=== PATIENT | male | born 1970 | race Caucasian/White ===

== ENCOUNTER → 2017-08-08 08:47 | Outpatient (CLI) | payer OTHER, SELFPAY ==
--- NOTE | 2017-08-08 08:50 | CT_ITS ---
STUDY: CT CHEST WITH CONTRAST REASON FOR EXAM: Male, 47 years old. Lung nodule follow-up RADIATION DOSAGE (If Supplied By Facility): CTDIvol = ( 16.75 ) mGy, DLP = ( 917.30 ) mGycm TECHNIQUE: Transaxial imaging was performed following intravenous administration of 100 ml of Isovue 300 contrast material. Multiplanar coronal and sagittal images were reformatted. Individualized dose optimization techniques were used for this CT. COMPARISON: 11/22/2009, 06/06/2009 CT scan chest FINDINGS: And the left upper lobe there is a well-circumscribed pulmonary nodule measuring 5.7 mm which is slightly smaller than prior study June 06, 2009. Is no evidence of focal consolidation pleural effusion pulmonary edema or pneumothorax. There is no evidence of emphysematous change. There is no demonstrated pleural abnormality. Normal heart and pericardium. There is a trace amount of residual thymic tissue lesser than prior study. There is a trace amount of fluid in the pericardial recess. Stable Normal hilar regions. Normal enhanced pulmonary arteries. Normal aorta arch and descending thoracic aorta. There are multi-level degenerative changes of the thoracic spine. The liver is homogeneous and low attenuating compatible with hepatic steatosis. There is a small hiatal hernia stable since prior study dating back to May 07, 2009. CT/Chest WITH Contrast IMPRESSION: There is a stable well-circumscribed noncalcified nodule in the left upper lobe that is slightly smaller than prior study 06/06/2009. Given the lack of interval change management administrator time this is thought to be a benign nodule. Small hiatal hernia Hepatic steatosis. Electronically Signed: Teresa Coombs MD at 10:00 EST Tel , Service support ,
[2017-08-08 09:07] LABS: CREATININE FINGERSTICK 0.7 mg/dL (0.70-1.30); EGFR FINGERSTICK > 60.0000 mL/min (>60)
== END ==
PROVIDERS: Family Provider Internal Medicine; PCP Internal Medicine; Visit Provider Internal Medicine
DX: R91.1 Solitary pulmonary nodule (principal)
CPT/HCPCS: 71260; Q9967

== ENCOUNTER → 2018-05-17 07:13 | Outpatient (CLI) | payer OTHER, SELFPAY ==
[2018-05-17 07:19] LABS: Bacteria 0 SEEN /hpf (None Seen); Mucous, Urine 0 SEEN /hpf (<or=2+); Red Blood Cells-Urine 0 SEEN /hpf (0-5); White Blood Cells 0 SEEN /hpf (0-5)
[2018-05-17 10:05] LABS: Color, Urine Yellow (Yellow); Glucose, Dipstick 1000 mg/dl (Normal); Ketone-Dipstick Negative (Negative); Leukocyte Esterase-Dipstick Negative /ul (Negative); Nitrite-Dipstick Negative (Negative); Occult Blood-Urine Negative /ul (Negative); Protein-Dipstick Negative (Negative); Specific Gravity, Urine 1.025 (1.002-1.030); Urine Bilirubin Dipstick Negative (Negative); Urine Clarity Clear (Clear); Urine Urobilinogen Normal (Normal)
[2018-05-17 10:09] LABS: Squamous Epithelial Cells - UA 0-5 SEEN /hpf (0-5)
[2018-05-17 10:10] LABS: Calcium Oxalate Crystals Ur RARE /hpf (<or=2+)
[2018-05-17 10:18] LABS: Absolute Lymphocyte Count 2.06 X10^3/ul (0.83-4.51); Absolute Neutrophil Count 5.4 X10^3/uL (2.0-7.7); Basophil# 0.03 X10^3/uL; Basophil% 0.4 % (0-1); Eosinophils% 2.4 % (0-5); Hematocrit 48.4 % (40-54); Hemoglobin 15.8 g/dl (13.0-16.5); Lymphocyte # 2.06 X10^3/ul (4.0); Lymphocyte % 24.6 % (19-41); Mean Corp Hgb Conc 32.6 g/gl (32-36); Mean Corpuscular Hgb 28.1 pg (27.0-32.0); Mean Platelet Vol. 10.2 fl (6.2-12.0); Monocyte# 0.62 X10^3/uL; Monocyte% 7.4 % (0-10); Neutrophil # 5.42 X10^3/uL (2.7-7.7); Neutrophil % 64.8 % (47-70); Platelet Count 205 K/mm3 (150-450); RBC Distribution Width CV 13.3 % (11.6-14.6); RBC Distribution Width SD 41.8 fl (35.1-43.9); Red Blood Count 5.63 M/mm3 (4.6-6.2); White Blood Count 8.4 K/mm3 (4.4-11.0)
[2018-05-17 10:19] LABS: POSITIVE COUNT NO; POSITIVE DIFFERENTIAL NO; POSITIVE MORPHOLOGY NO
[2018-05-17 10:27] LABS: Microalbumin,Random Urine 14.4 mg/L (NO RANGE EST.); Microalbumin:Creatinine Ratio 6.2 mg/g CRE (<30 mg/g CRE)
[2018-05-17 10:44] LABS: ALB/GLOB Ratio 1.1 RATIO (0.9-2.4); AST(SGOT) 20 U/L (15-37); Alanine Aminotransfer ALT/SGPT 46 U/L (16-61); Albumin, Serum 3.9 g/dL (3.2-5.0); Alkaline Phosphatase 64 U/L (45-117); Anion Gap 8 (5-15); BUN 17 mg/dL (7-18); Calcium,Total 9.4 mg/dL (8.5-10.1); Chloride 101 mmol/L (98-107); EST Glomerular Filtration Rate 97 mL/min (>60); Est Glom Filt Rate - Afr Amer 117 mL/min (>60); Globulin 3.7 g/dL (2.2-4.2); Glucose 124 mg/dL (74-106); Potassium 3.9 mmol/L (3.5-5.1); Protein, Total 7.6 g/dL (6.4-8.2); Sodium Level 141 mmol/L (136-145); Thyroid Stim Hormone (TSH) 2.86 uIU/mL (0.358-3.74)
[2018-05-19 16:09] LABS: CHOLESTEROL TOTAL 136 mg/dL (100-199); HDL-C 32 mg/dL (>39); HDL-P TOTAL 27.2 umol/L (>=30.5); SMALL LDL-P 859 nmol/L (<=527); TRIGLYCERIDES 170 mg/dL (0-149)
[2018-05-20 07:35] LABS: LDL-C 70 mg/dL (0-99); LDL-P 1227 nmol/L (<1000); LP-IR SCORE ** 75 (<=45)
== END ==
PROVIDERS: Family Provider Internal Medicine; PCP Internal Medicine; Referring Provider Internal Medicine; Visit Provider Internal Medicine
DX: E55.9 Vitamin D deficiency, unspecified (principal); E11.9 Type 2 diabetes mellitus without complications
CPT/HCPCS: 36415; 80053; 80061; 81001; 82043; 82306; 82570; 83704; 84443; 85025

== ENCOUNTER → 2018-12-07 | Outpatient (CLI) | payer OTHER, SELFPAY ==
[2018-12-07 10:43] LABS: Absolute Lymphocyte Count 1.48 X10^3/ul (0.83-4.51); Absolute Neutrophil Count 5.4 X10^3/uL (2.0-7.7); Basophil# 0.02 X10^3/uL; Basophil% 0.3 % (0-1); Eosinophil# 0.15 X10^3/uL; Eosinophils% 1.9 % (0-5); Hematocrit 45.1 % (40-54); Lymphocyte # 1.48 X10^3/ul (4.0); Lymphocyte % 19.1 % (19-41); Mean Corp Hgb Conc 33.3 g/gl (32-36); Mean Corpuscular Hgb 28.3 pg (27.0-32.0); Mean Corpuscular Volume 85.1 fL (80-94); Mean Platelet Vol. 10.2 fl (6.2-12.0); Monocyte# 0.68 X10^3/uL; Monocyte% 8.8 % (0-10); Neutrophil # 5.37 X10^3/uL (2.7-7.7); Neutrophil % 69.3 % (47-70); Platelet Count 201 K/mm3 (150-450); RBC Distribution Width CV 13.6 % (11.6-14.6); RBC Distribution Width SD 41.6 fl (35.1-43.9); White Blood Count 7.8 K/mm3 (4.4-11.0)
[2018-12-07 10:44] LABS: POSITIVE COUNT NO; POSITIVE DIFFERENTIAL NO; POSITIVE MORPHOLOGY NO
[2018-12-07 10:45] LABS: Vitamin D,25 Hydroxy 26.3 ng/mL (29.95-100.01)
[2018-12-07 10:52] LABS: Microalbumin,Random Urine 11.8 mg/L (NO RANGE EST.); Microalbumin:Creatinine Ratio 6.2 mg/g CRE (<30 mg/g CRE)
[2018-12-07 10:56] LABS: ALB/GLOB Ratio 1.1 RATIO (0.9-2.4); AST(SGOT) 17 U/L (15-37); Alanine Aminotransfer ALT/SGPT 33 U/L (16-61); Albumin, Serum 3.8 g/dL (3.2-5.0); Alkaline Phosphatase 70 U/L (45-117); Anion Gap 9 (5-15); BUN 17 mg/dL (7-18); Calcium,Total 9.1 mg/dL (8.5-10.1); Chloride 102 mmol/L (98-107); Creatinine, Serum 0.85 mg/dL (0.70-1.30); EST Glomerular Filtration Rate 103 mL/min (>60); Est Glom Filt Rate - Afr Amer 124 mL/min (>60); Globulin 3.5 g/dL (2.2-4.2); Glucose 121 mg/dL (74-106); Potassium 3.9 mmol/L (3.5-5.1); Protein, Total 7.3 g/dL (6.4-8.2); Sodium Level 142 mmol/L (136-145); Thyroid Stim Hormone (TSH) 2.47 uIU/mL (0.358-3.74)
[2018-12-08 14:06] LABS: CHOLESTEROL TOTAL 137 mg/dL (100-199); HDL-C 29 mg/dL (>39); HDL-P TOTAL 24.4 umol/L (>=30.5); SMALL LDL-P 1105 nmol/L (<=527); TRIGLYCERIDES 138 mg/dL (0-149)
[2018-12-10 16:55] LABS: INSULIN RESISTANCE SCORE 77 (<=45); LDL SIZE 19.7 nm (>20.5); LDL-C 80 mg/dL (0-99); LDL-P 1368 nmol/L (<1000)
== END | disposition home or self-care (01) ==
LOC: MTLAB 07:09
PROVIDERS: Family Provider Internal Medicine; PCP Internal Medicine; Referring Provider Internal Medicine; Visit Provider Internal Medicine
DX: E11.65 Type 2 diabetes mellitus with hyperglycemia (principal); E55.9 Vitamin D deficiency, unspecified
CPT/HCPCS: 36415; 80053; 80061; 82043; 82306; 82570; 83704; 84443; 85025

== ENCOUNTER → 2019-07-11 | Outpatient (CLI) | payer OTHER, SELFPAY ==
[2019-07-11 07:08] LABS: Bacteria 0 SEEN /hpf (None Seen); Mucous, Urine 0 SEEN /hpf (<or=2+); White Blood Cells 0 SEEN /hpf (0-5)
[2019-07-11 10:27] LABS: Color, Urine Yellow (Yellow); Glucose, Dipstick 1000 mg/dl (Normal); Ketone-Dipstick Negative (Negative); Leukocyte Esterase-Dipstick Negative /ul (Negative); Nitrite-Dipstick Negative (Negative); Occult Blood-Urine Negative /ul (Negative); Protein-Dipstick Negative (Negative); Specific Gravity, Urine 1.015 (1.002-1.030); Urine Bilirubin Dipstick Negative (Negative); Urine Clarity Sl. Cloudy (Clear); Urine Urobilinogen Normal (Normal)
[2019-07-11 10:28] LABS: Absolute Lymphocyte Count 1.67 X10^3/uL (0.83-4.51); Absolute Neutrophil Count 7.8 X10^3/uL (2.0-7.7); Basophil# 0.07 X10^3/uL; Basophil% 0.7 % (0-1); Eosinophil# 0.18 X10^3/uL; Eosinophils% 1.7 % (0-5); Hematocrit 49.2 % (40-54); Lymphocyte # 1.67 X10^3/ul (4.0); Lymphocyte % 15.9 % (19-41); Mean Corp Hgb Conc 32.5 g/dL (32-36); Mean Corpuscular Hgb 27.4 pg (27.0-32.0); Mean Corpuscular Volume 84.4 fL (80-94); Mean Platelet Vol. 9.9 fl (6.2-12.0); Monocyte# 0.72 X10^3/uL; Monocyte% 6.9 % (0-10); NRBC Flagged by Analyzer 0 % (0-5); Neutrophil # 7.76 X10^3/uL (2.7-7.7); Platelet Count 232 K/mm3 (150-450); RBC Distribution Width CV 13.5 % (11.6-14.6); RBC Distribution Width SD 41.1 fl (35.1-43.9); Red Blood Count 5.83 M/mm3 (4.6-6.2); White Blood Count 10.5 K/mm3 (4.4-11.0)
[2019-07-11 10:39] LABS: Red Blood Cells-Urine 0-5 SEEN /hpf (0-5); Squamous Epithelial Cells - UA 0-5 SEEN /hpf (0-5)
[2019-07-11 10:49] LABS: Vitamin D,25 Hydroxy 43.9 ng/mL (29.95-100.01)
[2019-07-11 10:54] LABS: AST(SGOT) 18 U/L (15-37); Alanine Aminotransfer ALT/SGPT 46 U/L (16-61); Albumin, Serum 3.8 g/dL (3.2-5.0); Alkaline Phosphatase 74 U/L (45-117); Anion Gap 4 (5-15); BUN 20 mg/dL (7-18); BUN/Creat Ratio 20.2 RATIO (10-20); Calcium,Total 9.5 mg/dL (8.5-10.1); Chloride 99 mmol/L (98-107); Creatinine, Serum 0.99 mg/dL (0.70-1.30); EST Glomerular Filtration Rate 86 mL/min (>60); Est Glom Filt Rate - Afr Amer 104 mL/min (>60); Globulin 3.7 g/dL (2.2-4.2); Glucose 200 mg/dL (74-106); Potassium 3.9 mmol/L (3.5-5.1); Protein, Total 7.5 g/dL (6.4-8.2); Sodium Level 136 mmol/L (136-145); Thyroid Stim Hormone (TSH) 2.62 uIU/mL (0.358-3.74)
[2019-07-12 16:07] LABS: CHOLESTEROL TOTAL 164 mg/dL (100-199); HDL-C 34 mg/dL (>39); SMALL LDL-P 1246 nmol/L (<=527); TRIGLYCERIDES 221 mg/dL (0-149)
[2019-07-13 14:03] LABS: INSULIN RESISTANCE SCORE 87 (<=45); LDL SIZE 19.8 nm (>20.5); LDL-C 86 mg/dL (0-99); LDL-P 1667 nmol/L (<1000)
== END | disposition home or self-care (01) ==
LOC: MTLAB 07:04
PROVIDERS: PCP Internal Medicine; Referring Provider Internal Medicine; Visit Provider Internal Medicine
DX: E55.9 Vitamin D deficiency, unspecified (principal); I10 Essential (primary) hypertension; E11.9 Type 2 diabetes mellitus without complications
CPT/HCPCS: 36415; 80053; 80061; 81001; 82043; 82306; 82570; 83704; 84443; 85025

== ENCOUNTER → 2020-01-30 | Outpatient (CLI) | payer OTHER, SELFPAY ==
[2020-01-30 07:13] LABS: Mucous, Urine 0 SEEN /hpf (<or=2+); Red Blood Cells-Urine 0 SEEN /hpf (0-5); White Blood Cells 0 SEEN /hpf (0-5)
[2020-01-30 09:49] LABS: Absolute Lymphocyte Count 1.77 X10^3/uL (0.83-4.51); Basophil# 0.05 X10^3/uL; Basophil% 0.6 % (0-1); Eosinophil# 0.18 X10^3/uL; Eosinophils% 2.3 % (0-5); Hematocrit 44.2 % (40-54); Hemoglobin 14.5 g/dL (13.0-16.5); Lymphocyte # 1.77 X10^3/ul (4.0); Lymphocyte % 22.7 % (19-41); Mean Corp Hgb Conc 32.8 g/dL (32-36); Mean Corpuscular Hgb 28.8 pg (27.0-32.0); Mean Corpuscular Volume 87.7 fL (80-94); Mean Platelet Vol. 10.2 fl (6.2-12.0); Monocyte# 0.74 X10^3/uL; Monocyte% 9.5 % (0-10); NRBC Flagged by Analyzer 0 % (0-5); Neutrophil % 64.1 % (47-70); Platelet Count 201 K/mm3 (150-450); RBC Distribution Width CV 13.7 % (11.6-14.6); RBC Distribution Width SD 42.2 fl (35.1-43.9); Red Blood Count 5.04 M/mm3 (4.6-6.2); White Blood Count 7.8 K/mm3 (4.4-11.0)
[2020-01-30 09:57] LABS: Color, Urine Yellow (Yellow); Glucose, Dipstick 250 mg/dl (Normal); Ketone-Dipstick Negative (Negative); Leukocyte Esterase-Dipstick Negative /ul (Negative); Nitrite-Dipstick Negative (Negative); Occult Blood-Urine Negative /ul (Negative); Protein-Dipstick 30 mg/dl (Negative); Urine Bilirubin Dipstick Negative (Negative); Urine Clarity Clear (Clear); Urine Urobilinogen Normal (Normal)
[2020-01-30 10:06] LABS: Bacteria 1+ /hpf (None Seen); Calcium Oxalate Crystals Ur 2+ /hpf (<or=2+)
[2020-01-30 10:07] LABS: Squamous Epithelial Cells - UA 0-5 SEEN /hpf (0-5)
[2020-01-30 10:23] LABS: ALB/GLOB Ratio 1.1 RATIO (0.9-2.4); AST(SGOT) 14 U/L (15-37); Alanine Aminotransfer ALT/SGPT 37 U/L (16-61); Albumin, Serum 3.7 g/dL (3.2-5.0); Alkaline Phosphatase 71 U/L (45-117); Anion Gap 4 (5-15); BUN 15 mg/dL (7-18); BUN/Creat Ratio 16.2 RATIO (10-20); Calcium,Total 9.4 mg/dL (8.5-10.1); Chloride 101 mmol/L (98-107); Cholesterol 133 mg/dL (200); Creatinine, Serum 0.93 mg/dL (0.70-1.30); EST Glomerular Filtration Rate 92 mL/min (>60); Est Glom Filt Rate - Afr Amer 111 mL/min (>60); Globulin 3.5 g/dL (2.2-4.2); Glucose 258 mg/dL (74-106); High Density Lipoprotein 33 mg/dL; Protein, Total 7.2 g/dL (6.4-8.2); Sodium Level 137 mmol/L (136-145); Thyroid Stim Hormone (TSH) 2.62 uIU/mL (0.358-3.74); Triglycerides 155 mg/dL; Very Low Density Lipoprotein 31 mg/dL (5-40)
[2020-01-30 10:32] LABS: Microalbumin,Random Urine 20.2 mg/L (NO RANGE EST.); Microalbumin:Creatinine Ratio 6.4 mg/g CRE (<30 mg/g CRE)
[2020-01-30 11:11] LABS: Vitamin D,25 Hydroxy 64.6 ng/mL
== END | disposition home or self-care (01) ==
LOC: MTLAB 07:06
PROVIDERS: PCP Internal Medicine; Referring Provider Internal Medicine; Visit Provider Internal Medicine
DX: E55.9 Vitamin D deficiency, unspecified (principal); E11.9 Type 2 diabetes mellitus without complications; R50.9 Fever, unspecified
CPT/HCPCS: 36415; 80053; 80061; 81001; 82043; 82306; 82570; 84443; 85025

== ENCOUNTER → 2020-08-06 07:06 | Outpatient (CLI) | payer OTHER, SELFPAY ==
[2020-08-06 07:13] LABS: Bacteria 0 SEEN /hpf (None Seen); Mucous, Urine 0 SEEN /hpf (<or=2+); Red Blood Cells-Urine 0 SEEN /hpf (0-5)
[2020-08-06 10:22] LABS: Absolute Lymphocyte Count 1.66 X10^3/uL (0.83-4.51); Absolute Neutrophil Count 5.3 X10^3/uL (2.0-7.7); Basophil# 0.05 X10^3/uL; Basophil% 0.6 % (0-1); Eosinophil# 0.14 X10^3/uL; Eosinophils% 1.8 % (0-5); Hematocrit 45.4 % (40-54); Hemoglobin 14.5 g/dL (13.0-16.5); Lymphocyte # 1.66 X10^3/ul (4.0); Lymphocyte % 21.1 % (19-41); Mean Corp Hgb Conc 31.9 g/dL (32-36); Mean Corpuscular Hgb 27.3 pg (27.0-32.0); Mean Corpuscular Volume 85.5 fL (80-94); Monocyte# 0.61 X10^3/uL; Monocyte% 7.7 % (0-10); NRBC Flagged by Analyzer 0 % (0-5); Neutrophil # 5.34 X10^3/uL (2.7-7.7); Neutrophil % 67.8 % (47-70); Platelet Count 221 K/mm3 (150-450); RBC Distribution Width CV 13.2 % (11.6-14.6); RBC Distribution Width SD 40.6 fl (35.1-43.9); Red Blood Count 5.31 M/mm3 (4.6-6.2); White Blood Count 7.9 K/mm3 (4.4-11.0)
[2020-08-06 10:31] LABS: Color, Urine Yellow (Yellow); Glucose, Dipstick 250 mg/dl (Normal); Ketone-Dipstick Negative (Negative); Leukocyte Esterase-Dipstick 25 /ul (Negative); Nitrite-Dipstick Negative (Negative); Occult Blood-Urine Negative /ul (Negative); Protein-Dipstick 30 mg/dl (Negative); Urine Bilirubin Dipstick Negative (Negative); Urine Clarity Sl. Cloudy (Clear); Urine Urobilinogen 1 mg/dl (Normal)
[2020-08-06 10:37] LABS: Squamous Epithelial Cells - UA 0-5 SEEN /hpf (0-5); White Blood Cells 0-5 SEEN /hpf (0-5)
[2020-08-06 10:46] LABS: Vitamin D,25 Hydroxy 52.8 ng/mL
[2020-08-06 10:52] LABS: AST(SGOT) 18 U/L (15-37); Alanine Aminotransfer ALT/SGPT 46 U/L (16-61); Albumin, Serum 3.6 g/dL (3.2-5.0); Alkaline Phosphatase 82 U/L (45-117); Anion Gap 7 (5-15); BUN 15 mg/dL (7-18); BUN/Creat Ratio 15.6 RATIO (10-20); Calcium,Total 9.3 mg/dL (8.5-10.1); Chloride 97 mmol/L (98-107); Creatinine, Serum 0.96 mg/dL (0.70-1.30); EST Glomerular Filtration Rate 88 mL/min (>60); Est Glom Filt Rate - Afr Amer 107 mL/min (>60); Globulin 3.5 g/dL (2.2-4.2); Glucose 267 mg/dL (74-106); Protein, Total 7.1 g/dL (6.4-8.2); Sodium Level 138 mmol/L (136-145); Thyroid Stim Hormone (TSH) 2.75 uIU/mL (0.358-3.74)
[2020-08-06 11:01] LABS: Microalbumin,Random Urine 25.8 mg/L (NO RANGE EST.); Microalbumin:Creatinine Ratio 9.3 mg/g CRE (<30 mg/g CRE)
[2020-08-08 20:08] LABS: CHOLESTEROL TOTAL 150 mg/dL (100-199); HDL-C 37 mg/dL (>39); HDL-P TOTAL 27.8 umol/L (>=30.5); SMALL LDL-P 837 nmol/L (<=527); TRIGLYCERIDES 164 mg/dL (0-149)
[2020-08-08 21:00] LABS: LDL-P 1300 nmol/L (<1000)
[2020-08-08 21:01] LABS: INSULIN RESISTANCE SCORE 73 (<=45); LDL SIZE 20.1 nm (>20.5); LDL-C (NIH CALC) 85 mg/dL (0-99)
== END ==
PROVIDERS: PCP Internal Medicine; Referring Provider Internal Medicine; Visit Provider Internal Medicine
DX: E55.9 Vitamin D deficiency, unspecified (principal); E78.5 Hyperlipidemia, unspecified; I10 Essential (primary) hypertension
CPT/HCPCS: 36415; 80053; 80061; 81001; 82043; 82306; 82570; 83704; 84443; 85025

== ENCOUNTER → 2020-12-31 07:10 | Outpatient (CLI) | payer OTHER, SELFPAY ==
[2020-12-31 07:24] LABS: Mucous, Urine 0 SEEN /hpf (<or=2+); Red Blood Cells-Urine 0 SEEN /hpf (0-5); White Blood Cells 0 SEEN /hpf (0-5)
[2020-12-31 10:42] LABS: Color, Urine Yellow (Yellow); Glucose, Dipstick Normal (Normal); Ketone-Dipstick Negative (Negative); Leukocyte Esterase-Dipstick Negative /ul (Negative); Nitrite-Dipstick Negative (Negative); Occult Blood-Urine Negative /ul (Negative); Protein-Dipstick 15 mg/dl (Negative); Specific Gravity, Urine 1.025 (1.002-1.030); Urine Bilirubin Dipstick Negative (Negative); Urine Clarity Sl. Cloudy (Clear); Urine Urobilinogen Normal (Normal)
[2020-12-31 10:43] LABS: Absolute Lymphocyte Count 1.54 X10^3/uL (0.83-4.51); Basophil# 0.04 X10^3/uL; Basophil% 0.6 % (0-1); Eosinophil# 0.12 X10^3/uL; Eosinophils% 1.9 % (0-5); Hematocrit 44.4 % (40-54); Lymphocyte # 1.54 X10^3/ul (0.83-4.51); Lymphocyte % 24.3 % (19-41); Mean Corp Hgb Conc 31.5 g/dL (32-36); Mean Corpuscular Hgb 27.5 pg (27.0-32.0); Mean Corpuscular Volume 87.2 fL (80-94); Mean Platelet Vol. 10.3 fl (6.2-12.0); Monocyte# 0.57 X10^3/uL; NRBC Flagged by Analyzer 0 % (0-5); Neutrophil # 4.02 X10^3/uL (2.7-7.7); Neutrophil % 63.3 % (47-70); Platelet Count 242 K/mm3 (150-450); RBC Distribution Width CV 13.2 % (11.6-14.6); RBC Distribution Width SD 42.4 fl (35.1-43.9); Red Blood Count 5.09 M/mm3 (4.6-6.2); White Blood Count 6.4 K/mm3 (4.4-11.0)
[2020-12-31 10:51] LABS: Bacteria 1+ /hpf (None Seen); Squamous Epithelial Cells - UA 0-5 SEEN /hpf (0-5)
[2020-12-31 10:52] LABS: Calcium Oxalate Crystals Ur 1+ /hpf (<or=2+)
[2020-12-31 10:57] LABS: Vitamin D,25 Hydroxy 56.8 ng/mL
[2020-12-31 11:00] LABS: Microalbumin,Random Urine 21.8 mg/L (NO RANGE EST.); Microalbumin:Creatinine Ratio 7.7 mg/g CRE (<30 mg/g CRE)
[2020-12-31 11:14] LABS: AST(SGOT) 20 U/L (15-37); Alanine Aminotransfer ALT/SGPT 47 U/L (16-61); Albumin, Serum 3.6 g/dL (3.2-5.0); Alkaline Phosphatase 66 U/L (45-117); Anion Gap 5 (5-15); BUN 13 mg/dL (7-18); BUN/Creat Ratio 16.1 RATIO (10-20); Calcium,Total 9.1 mg/dL (8.5-10.1); Chloride 103 mmol/L (98-107); Cholesterol 127 mg/dL (200); Creatinine, Serum 0.81 mg/dL (0.70-1.30); EST Glomerular Filtration Rate 108 mL/min (>60); Est Glom Filt Rate - Afr Amer 130 mL/min (>60); Globulin 3.5 g/dL (2.2-4.2); Glucose 205 mg/dL (74-106); High Density Lipoprotein 31 mg/dL; PSA,Total - Annual Screen 0.56 ng/mL (0.00-4.00); Potassium 4.3 mmol/L (3.5-5.1); Protein, Total 7.1 g/dL (6.4-8.2); Sodium Level 136 mmol/L (136-145); Thyroid Stim Hormone (TSH) 3.34 uIU/mL (0.358-3.74); Triglycerides 126 mg/dL; Very Low Density Lipoprotein 25 mg/dL (5-40)
== END ==
PROVIDERS: PCP Internal Medicine; Referring Provider Internal Medicine; Visit Provider Internal Medicine
DX: E55.9 Vitamin D deficiency, unspecified (principal); E11.9 Type 2 diabetes mellitus without complications; Z12.5 Encounter for screening for malignant neoplasm of prostate
CPT/HCPCS: 36415; 80053; 80061; 81001; 82043; 82306; 82570; 84153; 84443; 85025; G0103

== ENCOUNTER → 2021-01-18 06:41 | Outpatient (CLI) | payer OTHER, SELFPAY ==
--- NOTE | 2021-01-18 06:46 | ECHOD_ITS ---
Reason For Study: Abn. EKG Procedure This was a 2D Doppler, Color Flow transthoracic echocardiogram. The study was technically difficult. Contrast injection was performed. Exam performed in department. Left Ventricle Normal LV size. Left ventricular systolic function is normal. The estimated ejection fraction is 55 %. Transmitral doppler flow suggestive of impaired relaxation of left ventricle. No regional wall motion abnormalities noted. Right Ventricle Normal RV size. Normal systolic function. Atria Normal left atrium. Normal right atrium. No doppler evidence for ASD. Mitral Valve There is no mitral annular calcification. Normal mitral valve. Trivial mitral valve insufficiency. Tricuspid Valve Normal tricuspid valve. Trivial tricuspid valve insufficiency. Unable to estimate RV systolic pressure/pulmonary artery pressure due to technically difficult study. Aortic Valve Trisinus/trileaflet aortic valve. Mild focal aortic valve calcification. Pulmonic Valve The pulmonic valve is not well visualized. Great Vessels Normal sized aortic root. Pericardium/Pleural No pericardial effusion. Medication Diluted definity 1.5ml given slow IV push to enhance endocardial definition. MMode/2D Measurements & Calculations LVIDd: 4.7 cm IVSd: 1.1 cm Ao root diam: 3.5 cm LVIDs: 3.1 cm LVPWd: 0.94 cm RVDd: 3.4 cm FS: 33.8 % LAV(MOD-bp): 66.2 ml LVAd ap4: 38.4 cm2 LVAd ap2: 40.1 cm2 LAV(MOD-bp) Indexed: 23.9 ml/m2 LVLd ap4: 8.6 cm LVLd ap2: 9.0 cm LAV(MOD-sp2): 66.7 ml EDV(MOD-sp4): 135.6 ml EDV(MOD-sp2): 144.0 ml LAV(MOD-sp4): 62.6 ml EDV(sp4-el): 144.8 ml EDV(sp2-el): 151.5 ml LVAs ap4: 25.1 cm2 LVAs ap2: 22.9 cm2 LVLs ap4: 7.6 cm LVLs ap2: 7.8 cm ESV(MOD-sp4): 69.5 ml ESV(MOD-sp2): 55.2 ml ESV(sp4-el): 70.9 ml ESV(sp2-el): 57.2 ml EF(MOD-sp4): 48.8 % EF(MOD-sp2): 61.7 % EF(sp4-el): 51.1 % SV(MOD-sp4): 66.1 ml SV(MOD-sp2): 88.8 ml SV(sp4-el): 73.9 ml LA A4 area: 20.1 cm2 RA A4 area: 11.6 cm2 Doppler Measurements & Calculations MV E max adolph: 83.7 cm/sec Lat Peak E' Adolph: 8.7 cm/sec Med Peak E' Adolph: 5.9 cm/sec MV A max adolph: 108.4 cm/sec E/E' lat: 9.6 E/E' med: 14.1 MV E/A: 0.77 Ao V2 max: 128.8 cm/sec LV V1 max: 94.2 cm/sec PA V2 max: 79.5 cm/sec Ao max P.6 mmHg LV V1 max P.5 mmHg ECHO/Echo Complete W/ Contrast Interpretation Summary The study was technically difficult. Contrast injection was performed. Left ventricular systolic function is normal. The estimated ejection fraction is 55 %. Trivial mitral valve insufficiency. Trivial tricuspid valve insufficiency. Mild focal aortic valve calcification. Unable to estimate RV systolic pressure/pulmonary artery pressure due to techni trip difficult study. Transmitral doppler flow suggestive of impaired relaxation of left ventricle Ordering Physician: Beverley Cavazos Referring Physician: Beverley Cavazos Performed By: Snehal Savage RDCS
--- NOTE | 2021-01-18 21:36 | STRESSREP ---
Stress Test Report Date: 01-18-2021 Procedure: Pharmacologic stress nuclear imaging study Indications: Abnormal ECG Consent: Per the patient Procedure: The patient underwent pharmacologic (Regadenoson 0.4mg ) evaluation with a peak heart rate of 99 beats per minute (57%predicted maximal heart rate) and a peak blood pressure of 138/82 mmHg. The baseline ECG demonstrated sinus rhythm. The peak pharmacologic ECG demonstrated no obvious ECG changes. There were no cardiac dysrhythmias pretest, during pharmacologic infusion, or recovery. There was no complaint of chest discomfort during pharmacologic infusion or recovery. The examination was discontinued secondary to completion of protocol. Impression: 1. Pharmacologic (Regadenoson) evaluation 2. Peak pharmacologic ECG with no obvious ECG change. 3. There were no cardiac dysrhythmias pretest, during pharmacologic infusion, or recovery. 4. Nuclear images pending Myocardial perfusion imaging study: Technique: The patient was injected with 15.0 millicuries of technetium 99m Cardiolite and subsequently rest SPECT Cardiolite nuclear imaging was obtained in the horizontal long, vertical long, and short axis views. The patient underwent pharmacologic (Regadenoson) evaluation with a peak heart rate of 99 beats per minute (57% percent predicted maximal heart rate) and a peak blood pressure of 138/82 mmHg. The patient was injected with 45.0 millicuries of technetium 99m Cardiolite and subsequently stress SPECT Cardiolite nuclear imaging was obtained in the horizontal long, vertical long, and short axis views. A gated Cardiolite study at peak stress was obtained. Interpretation: Rest and stress SPECT Cardiolite nuclear imaging status post realignment, normalization, and attenuation correction demonstrate at rest the appearance of relative uniform tracer uptake and myocardial perfusion within normal limits. Status post stress there is an area of subtle diminished tracer uptake in the mid to distal anterior/anteroapical segments. There is end systolic thickening and brightening. The gated Cardiolite study demonstrates myocardial thickening and inward wall motion. The reported LVEF is 55%. Impression: 1. Rest and stress SPECT her nuclear imaging demonstrate myocardial perfusion changes potentially compatible with an area of stress-induced myocardial ischemia involving portions of the mid to distal anterior/anteroapical segments, although, an element of shifting soft tissue attenuation/artifact cannot necessarily be excluded.. 2. The gated Cardiolite study reports an LVEF of 55%. This note was generated with Dragon dictation software. It may contain incorrect words, spelling, and punctuation that were not noted in checking the note before signing.
== END ==
PROVIDERS: PCP Internal Medicine; Referring Provider Internal Medicine; Visit Provider Internal Medicine
DX: R94.31 Abnormal electrocardiogram [ECG] [EKG] (principal)
CPT/HCPCS: 78452; 93017; 93306; A9500; Q9957; A4216; C8929; J2785; J3490

== ENCOUNTER 2021-04-12 07:20 | Day surgery (SDC) | payer OTHER, SELFPAY ==
--- NOTE | 2021-04-08 12:38 | RAD_ITS ---
INDICATION: dyspnea EXAMINATION/TECHNIQUE: X-RAY - XR Chest 2 Views COMPARISON: 02/07/2015. FINDINGS: The lungs are clear. The cardiomediastinal silhouette is unremarkable. No pleural effusion or pneumothorax. No acute osseous abnormalities. RAD/Chest PA and Lateral IMPRESSION: No acute radiographic abnormalities. Electronically Signed: Babak Weber MD at 19:52 EDT Tel , Service support ,
[2021-04-08 13:26] LABS: Absolute Lymphocyte Count 1.75 X10^3/uL (0.83-4.51); Absolute Neutrophil Count 5.1 X10^3/uL (2.0-7.7); Basophil# 0.06 X10^3/uL; Basophil% 0.8 % (0-1); Eosinophil# 0.15 X10^3/uL; Eosinophils% 1.9 % (0-5); Hematocrit 46.5 % (40-54); Hemoglobin 15.3 g/dL (13.0-16.5); Lymphocyte # 1.75 X10^3/ul (0.83-4.51); Lymphocyte % 22.4 % (19-41); Mean Corp Hgb Conc 32.9 g/dL (32-36); Monocyte# 0.68 X10^3/uL; Monocyte% 8.7 % (0-10); NRBC Flagged by Analyzer 0 % (0-5); Neutrophil # 5.12 X10^3/uL (2.7-7.7); Neutrophil % 65.4 % (47-70); Platelet Count 247 K/mm3 (150-450); RBC Distribution Width CV 13.5 % (11.6-14.6); RBC Distribution Width SD 41.9 fl (35.1-43.9); Red Blood Count 5.47 M/mm3 (4.6-6.2); White Blood Count 7.8 K/mm3 (4.4-11.0)
[2021-04-08 13:38] LABS: International Normalized Ratio 1.1; Partial Thromboplast Time 30.5 Seconds (24.1-36.2); Prothrombin Time (Protime)PT. 13.1 SECONDS (11.7-14.9)
[2021-04-08 14:03] LABS: Anion Gap 5 (5-15); BUN 13 mg/dL (7-18); BUN/Creat Ratio 12.9 RATIO (10-20); Calcium,Total 9.7 mg/dL (8.5-10.1); Chloride 98 mmol/L (98-107); Creatinine, Serum 1.01 mg/dL (0.70-1.30); EST Glomerular Filtration Rate 83 mL/min (>60); Est Glom Filt Rate - Afr Amer 101 mL/min (>60); Glucose 337 mg/dL (74-106); Potassium 4.3 mmol/L (3.5-5.1); Sodium Level 135 mmol/L (136-145)
[2021-04-10 13:23] VITALS: BMI 42.5
--- NOTE | 2021-04-11 18:28 | HP.PCM_ITS ---
History and Physical Date of Admission: 04/12/21 [facility] [address] [place] [address] [phone] OFFICE VISITDate of Service: 04/04/21 MR#:[id number]:[id number]: MARIAJOSE GARZA #:[id number]:[id number] Provider:Dr. Abdoul Cohen, SEKOUge/Sex: 51/M Loc ation:[facility].WHGStatus:Signed HPI HPI History of Present Illness Surgical H&P: Yes Details: This is a 51-year-old white male who presents today for outpatient cardiovascular consultation based upon concerns of report of an abnormal ECG, an abnormal stress nuclear imaging study, and dyspnea on exertion superimposed upon a history of hyperlipidemia, hypertension, diabetes mellitus, and a family hist ory of cardiovascular disease/CAD requiring revascularization therapy. The patient admits to feeling short of breath and dyspneic when he exerts himself which he states he does not do very often. He realizes he needs to increase his overall aerobic activity to bring his weight under better control, improve his cardiovascular risk factors, and improve his health. He denies any ongoing chest discomfort at rest or with exertion. He has not had orthopnea or PND or ongoing peripheral pitting edema. There has been no near syncope or syncope. He states he was evaluated by his PCP. An ECG was performed which he was told was abnormal. This led to further evaluation with a transthoracic echocardiogram and an exercise tolerance test/imaging study. His PCP ECG was reviewed. It does appear to be abnormal. However, on further review there is concern of limb lead misplacement which would lead to an abnormal appearance. His ECG was repeated today in the office. He was noted to have sinus rhythm with no acute ECG changes. He underwent evaluation with a transthoracic echocardiogram and an exercise tolerance test/imaging study (pharmacologic). The results are as noted below. He has also had lipid labs performed in December of this year. His total cholesterol was 127 with an LDL of 71 and an HDL of 31. His triglycerides were 126. 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 Accompanied by: Allergies Penicillins Allergy (Verified 04/04/21 15:34) Hives amoxicillin [From Augmentin] Adverse Reaction (Unknown, Verified 04/04/21 15:34) Unknown clavulanic acid [From Augmentin] Adverse Reaction (Unknown, Verified 04/04/21 15:34) Unknown Medications duloxetine 30 mg capsule,delayed release 30 mg PO DAILY 03/19/21 [History Confir med 04/04/21] hydrochlorothiazide 12.5 mg tablet 12.5 mg PO DAILY 03/19/21 [History Confirmed 04/04/21] insulin degludec 200 unit/mL (3 mL) subcutaneous pen 120 unit SUBCUT DAILY ml 03/19/21 [History Confirmed 04/04/21] insulin lispro 100 unit/mL subcutaneous solution 50 unit SUBCUT TID ml 03/19/21 [History Confirmed 04/04/21] metformin 1,000 mg tablet 1,000 mg PO BID 03/19/21 [History Confirmed 04/04/21] metoprolol succinate 25 mg tablet,extended release 24 hr 25 mg PO DAILY 03/19/21 [History Confirmed 04/04/21] nitroglycerin 0.2 mg/hr transdermal 24 hour patch 1 patch TRANSDERMAL DAILY 05/28 [History Confirmed 04/04/21] potassium gluconate 595 mg (99 mg) tablet 595 mg PO DAILY 03/19/21 [History Confirmed 04/04/21] pravastatin 40 mg tablet 40 mg PO QHS 03/19/21 [History Confirmed 04/04/21] valsartan 80 mg tablet 80 mg PO DAILY 03/19/21 [History Confirmed 04/04/21] ascorbic acid (vitamin C) 1,000 mg tablet 1 g PO DAILY tab 04/04/21 [History Confirmed 04/04/21] aspirin 81 mg tablet,delayed release 81 mg PO DAILY 04/04/21 [History Confirmed 04/04/21] cholecalciferol (vitamin D3) 25 mcg (1,000 unit) tablet 125 mcg PO DAILY tab 04/04/21 [History Confirmed 04/04/21] clopidogrel 75 mg tablet 75 mg PO DAILY #30 tab 04/04/21 [Rx Confirmed 04/04/21] coenzyme Q10 200 mg capsule 200 mg PO DAILY 04/04/21 [History Confirmed 04/04/21] loratadine 10 mg tablet 10 mg PO DAILY 04/04/21 [History Confirmed 04/04/21] [facility] Medical History (Updated 04/04/21 @ 16:[address] Abdoul Cohen MD) Dyspnea on exertion Essential hypertension HLD (hyperlipidemia) Lung nodule OG (obstructive sleep apnea) PVD (peripheral vascular disease) Type 2 diabetes mellitus Surgical History History of shoulder surgery Family History Father Hypertension CAD (coronary artery disease) Diabetes Presence of implantable cardioverter-defibrillator (ICD) Mother Breast cancer Grandmother CVA (cerebral vascular accident) Diabetes Grandfather CVA (cerebral vascular accident) Heart disease Uncle Myocardial infarction Social History Smoking Status: Former smoker Smokeless tobacco user: chewing tobacco alcohol intake: current details: occasional substance use type: does not use caffeine: Yes ROS Const Const: Positive for fatigue; Negative for weakness, frequent falls, excessive sweating, weight gain or weight loss Eyes Eyes: Negative for transient loss of vision, blurry vision or change in vision ENT ENT: Negative for dizziness or balance problems Cardio Chest Pain: No Palpitations: No Edema: None Muscle aches with walking: None Resp Respiratory: Positive for SOB with activity (cause Im out of shape); Negative for SOB at rest GI GI: Negative vomiting or vomiting blood/hematemesis : Negative for hematuria Musc Musc: Positive for joint pain (Rt shoulder); Negative for muscle aches/ myalgia, muscle weakness or balance problems Skin Skin: Negative non-healing lesions or rash Neuro Neuro: Negative for dizziness, lightheadedness, orthostatic symptoms, frequent falls, weakness or blurry vision Migue Hematologic/Lymphatic: Negative for easy bleeding Endo Endo: Positive for fatigue; Negative for excessive sweating Psych Psych: Negative for anxiety or depression Allergy Allergy/Immunology: Negative for hives and Negative for rash Cardiology Exam Const Appearance: cooperative, healthy appearing, comfortable, no acute distress, well developed and well groomed Nutritional Appearance: obese Orientation: alert, awake and oriented x3 Head Head: normal to inspection, normocephalic and atraumatic Ears: hearing grossly normal bilaterally Nose: external nose normal Face and Sinus: face symmetric Eyes Eyelids: eyelids normal Conjunctivae: conjunctivae normal Pupils: PERRL EOM: EOM intact bilaterally Neck Neck: normal visual inspection and full ROM Carotids: normal carotid upstroke Chest Chest inspection: normal inspection of the chest, symmetric chest movement and normal respiratory effort Auscultation: Bilateral: Clear to Auscultation Cardio Palpation: normal PMI Rate: regular rate Rhythm: regular rhythm Heart sounds: S1 normal and S2 normal GI GI: normal to inspection, soft, bowel sounds present and obese Neuro General: patient alert, patient awake, patient oriented x3 and moves all extremities Skin Skin: no rashes or lesions noted Extremities Pulses: Normal: Right Radial Pulse and Left Radial Pulse Lower Extremity Edema: None: Bilateral Psych Psychological: normal affect Assessment and Plan Assessment and Plan (1) Dyspnea on exertion: Status: Acute Plan - Dr. Abdoul Cohen MD: At the present time his dyspnea on exertion may be multifactorial. It may be related to his body habitus and decreased functional status. Underlying cardiovascular disease cannot necessarily be excluded. His exercise tolerance test does raise concerns of stress-induced myocardial ischemia. Thus it was felt prudent that he undergo further evaluation which would include subsequent studies with diagnostic cardiac catheterization. (2) Abnormal stress test: Status: Acute Orders: Orders: 12 Lead EKG performed by [facility] Today Left Heart Cath/COR/LV Percut Today Basic Metabolic Profile (BMP) Today Partial Thromboplast Time Today Prothrombin Time w/INR Today CBC W/Diff, Automated Today Chest PA and Lateral Today Plan - Dr. Abdoul Cohen MD: He does have an abnormal stress nuclear imaging study as noted above. It is unclear whether this is a false positive versus a true positive. At the moment he will undergo medical management and further evaluation. This will include diagnostic cardiac catheterization. The procedure and risk were discussed with him and he was agreeable to this approach. (3) HLD (hyperlipidemia): Status: Acute Plan - Dr. Abdoul Cohen MD: His lipid labs were reviewed. He will continue medical therapy and follow-up. (4) Essential hypertension: Status: Acute Orders: Orders: 12 Lead EKG performed by [facility] Today Left Heart Cath/COR/LV Percut Today Basic Metabolic Profile (BMP) Today Partial Thromboplast Time Today Prothrombin Time w/INR Today CBC W/Diff, Automated Today Chest PA and Lateral Today Plan - Dr. Abdoul Cohen MD: He will continue medical management. Plan Details Other Medications: New: clopidogrel (Plavix) 75 mg PO DAILY 30 tabs 1RF Other Orders: Orders: 12 Lead EKG performed by [facility] Today R94.31 Left Heart Cath/COR/LV Percut Today R94.31 Basic Metabolic Profile (BMP) Today R94.31 Partial Thromboplast Time Today R94.31 Prothrombin Time w/INR Today R94.31 CBC W/Diff, Automated Today R94.31 Chest PA and Lateral Today R94.31 Additional Comments: The above was discussed with the patient. He was agreeable to this approach. Thank you for allowing me to participate in the care of your patient. Please don't hesitate to call if any issues arise. This note was generated using a voice recognition system and there may be incorrect words, spelling or punctuation that were not noted when reviewing the office note prior to saving. Follow Up: 3 Months (PFM) COVID (Procedure Consent) Procedure Criteria Procedure Criteria: Yes Elective The surgeon/proceduralist and patient have discussed in detail the risk of exposure to and/or potential harm posed by the COVID-19 virus with having a surgery/procedure at this time versus the risk of delaying the surgery/procedure. It is not possible to know either the risk of delaying the surgery or procedure or chance of getting an infection with perfect accuracy, but a joint decision was made between the patient and the surg jose/proceduralist to proceed at this time with the scheduled surgery/procedure as indicated on the consent form. Coding Level of Care Code Off vis,new,level 5 Diagnoses Dyspnea on exertion R06.00 Abnormal stress test R94.39 HLD (hyperlipidemia) E78.5 Essential hypertension I10 Coding Level of Care Code Off vis,new,level 5 Diagnoses Dyspnea on exertion R06.00 Abnormal stress test R94.39 HLD (hyperlipidemia) E78.5 Essential hypertension I10 Supplemental Info Supplemental Information Echocardiogram: 01-18-2021 Interpretation Summary The study was technically difficult. Contrast injection was performed. Left ventricular systolic function is normal. The estimated ejection fraction is 55 %. Trivial mitral valve insufficiency. Trivial tricuspid valve insufficiency. Mild focal aortic valve calcification. Unable to estimate RV systolic pressure/pulmonary artery pressure due to technically difficult study. Transmitral doppler flow suggestive of impaired relaxation of left ventricle Stress Test Report Date: 01-18-2021 Procedure: Pharmacologic stress nuclear imaging study Indications: Abnormal ECG Consent: Per the patient Procedure: The patient underwent pharmacologic (Regadenoson 0.4mg ) evaluation with a peak heart rate of 99 beats per minute (57%predicted maximal heart rate) and a peak blood pressure of 138/82 mmHg. The baseline ECG demonstrated sinus rhythm. The peak pharmacologic ECG demonstrated no obvious ECG changes. There were no cardiac dysrhythmias pretest, during pharmacologic infusion, or recovery. There was no complaint of chest discomfort during pharmacologic infusion or recovery. The examination was discontinued secondary to completion of protocol. Impression: 1. Pharmacologic (Regadenoson) evaluation 2. Peak pharmacologic ECG with no obvious ECG change. 3. There were no cardiac dysrhythmias pretest, during pharmacologic infusion, or recovery. 4. Nuclear images pending Myocardial perfusion imaging study: Technique: The patient was injected with 15.0 millicuries of technetium 99m Cardiolite and subsequently rest SPECT Cardiolite nuclear imaging was obtained in the horizontal long, vertical long, and short axis views. The patient underwent pharmacologic (Regadenoson) evaluation with a peak heart rate of 99 beats per minute (57% percent predicted maximal heart rate) and a peak blood pressure of 138/82 mmHg. The patient was injected with 45.0 millicuries of technetium 99m Cardiolite and subsequently stress SPECT Cardiolite nuclear imaging was obtained in the horizontal long, vertical long, and short axis views. A gated Cardiolite study at peak stress was obtained. Interpretation: Rest and stress SPECT Cardiolite nuclear imaging status post realignment, normalization, and attenuation correction demonstrate at rest the appearance of relative uniform tracer uptake and myocardial perfusion within normal limits. Status post stress there is an area of subtle diminished tracer uptake in the mid to distal anterior/anteroapical segments. There is end systolic thickening and brightening. The gated Cardiolite study demonstrates myocardial thickening and inward wall motion. The reported LVEF is 55%. Impression: 1. Rest and stress SPECT her nuclear imaging demonstrate myocardial perfusion changes potentially compatible with an area of stress-induced myocardial ischemia involving portions of the mid to distal anterior/anteroapical segments, although, an element of shifting soft tissue attenuation/artifact cannot necessarily be excluded.. 2. The gated Cardiolite study reports an LVEF of 55%. Labs: LDL Cholesterol 71 mg/dL (0-130) HDL Cholesterol 31 mg/dL (40-) L Triglycerides 126 mg/dL (-199) VLDL Cholesterol 25 mg/dL (5-40) Diagnostics: Echocardiogram Stress Test NM Stress Test Chest X-Ray Pulmonary: No Data to Display 04/04/21 6930<Electronically signed by Abdoul Cohen MD>Date Abdoul Cohen MD Cosigner Signature:Date (if applicable) CC: Dr. Beverley Cavazos, DO ~ Assessment & Plan Addt'l Comments I have re-examined the patient. There are no clinical changes since date of exam
--- NOTE | 2021-04-12 10:00 | CL.D_ITS ---
Patient Name: MARIAJOSE GARZA Study Date: 04/12/2021 Performing: Abdoul Cohen MD Ht: 75.98 inches 193 cm : 1970 Wt: 350.53 lbs 159 kg Age: 51 Gender: male BSA: 2.81 PROCEDURE(S) PERFORMED XL79-TPW/[facility] CLINICAL PROFILE AND INDICATIONS Indications: Suspected CAD Heart Failure: None Stress/Imaging Date: 01/18/2021tress Test with SPECT MPI: Positive Intermediate Risk Angina Classification Anginal Classification w/in 2 Weeks: Anginal Equivalent Dyspnea CAD Presentations: Other: dyspnea on exertion CONCLUSIONS Normal coronary arteries RECOMMENDATIONS DESCRIPTION OF PROCEDURE The patient arrived to the procedure lab. The risks and benefits of the procedure as well as a full d escription of our services here and current unavailability of surgical backup were fully explained to the patient and/or their significant other prior to the catheterization. The Timeout was completed, verifying the correct patient and procedure. The patient's procedural site was prepped and draped in the usual fashion. Local anesthetic was given subcutaneously to right radial region with Lidocaine 2% . Using a modified Seldinger technique, arterial access was obtained via the right radial artery, a 6 Fr sheath was inserted. Left Coronary Artery selective angiography was performed in multiple views u sing a 5 Fr. 4.0 [place] catheter. Left Coronary Artery selective angiography was performed in multiple views using a 5 Fr. JL3.5 catheter. Right Coronary Artery selective angiography was then performed i n multiple views using a 5 Fr. JR 4 catheter.The arterial sheath was pulled and a TR Band was applied for hemostasis. Sheath flushed prior to removal. 10cc air inserted CORONARY ANGIOGRAPHY DOMINANCE: Co- Dominant LEFT HEART ASSESSMENT Left Ventricular Ejection Fraction: Not assessed LEFT MAIN: Angiographically normal LEFT ANTERIOR DESCENDING ARTERY: Angiographically normal CIRCUMFLEX ARTERY: Angiographically normal RIGHT CORONARY ARTERY: Angiographically normal COMPLICATIONS No Complications PROCEDURE MEDICATIONS Fentanyl 50 mcg IV Versed 1 mg IV Fentanyl 50 mcg IV Versed 1 mg IV Oxygen: 2 L/min via nasal cannula Heparin given IA 04/12/2021 09:02:56 Nitro 100 mcg IA 04/12/2021 09:20:30 Verapamil 2.5mg, Ntg 100mcgs, 3000 units of Heparin given IA 04/12/2021 09:02:56 SUMMARY OF HEMODYNAMIC DATA Time AIR REST ECG 07:36:58 AO 118/88 (102) SA 09:04:09 ECG 09:42:47 Signed By Abdoul Cohen MD On 04/12/2021 09:58:47 Abdoul Cohen MD
== END 2021-04-12 11:15 | disposition home or self-care (01) ==
LOC: CLSP 07:21
PROVIDERS: PCP Internal Medicine; Referring Provider Internal Medicine Cardiovascular Disease; Visit Provider Internal Medicine Cardiovascular Disease
DX: R06.00 Dyspnea, unspecified (principal); I10 Essential (primary) hypertension; R94.31 Abnormal electrocardiogram [ECG] [EKG]; R94.39 Abnormal result of other cardiovascular function study; E66.9 Obesity, unspecified; E11.9 Type 2 diabetes mellitus without complications; E78.5 Hyperlipidemia, unspecified; Z79.4 Long term (current) use of insulin; Z79.899 Other long term (current) drug therapy; Z87.891 Personal history of nicotine dependence; Z68.41 Body mass index [BMI] 40.0-44.9, adult
CPT/HCPCS: 36415; 71046; 80048; 85025; 85610; 85730; 93454; 99152; 99153; J7040; Q9967; C1769; C1894

== ENCOUNTER 2021-07-19 08:45 | Outpatient (CLI) | payer OTHER, SELFPAY ==
[2021-07-19 08:51] LABS: Bacteria 0 SEEN /hpf (None Seen); Mucous, Urine 0 SEEN /hpf (<or=2+); Red Blood Cells-Urine 0 SEEN /hpf (0-5); White Blood Cells 0 SEEN /hpf (0-5)
[2021-07-19 09:42] LABS: Absolute Lymphocyte Count 1.66 X10^3/uL (0.83-4.51); Absolute Neutrophil Count 5.2 X10^3/uL (2.0-7.7); Basophil# 0.04 X10^3/uL; Basophil% 0.5 % (0-1); Eosinophil# 0.12 X10^3/uL; Eosinophils% 1.5 % (0-5); Hematocrit 47.2 % (40-54); Hemoglobin 15.3 g/dL (13.0-16.5); Lymphocyte # 1.66 X10^3/ul (0.83-4.51); Lymphocyte % 21.4 % (19-41); Mean Corp Hgb Conc 32.4 g/dL (32-36); Mean Corpuscular Hgb 27.6 pg (27.0-32.0); Mean Platelet Vol. 10.2 fl (6.2-12.0); Monocyte# 0.66 X10^3/uL; Monocyte% 8.5 % (0-10); NRBC Flagged by Analyzer 0 % (0-5); Neutrophil # 5.22 X10^3/uL (2.7-7.7); Neutrophil % 67.2 % (47-70); Platelet Count 236 K/mm3 (150-450); RBC Distribution Width CV 14.1 % (11.6-14.6); RBC Distribution Width SD 43.1 fl (35.1-43.9); Red Blood Count 5.55 M/mm3 (4.6-6.2); White Blood Count 7.8 K/mm3 (4.4-11.0)
[2021-07-19 09:48] LABS: Color, Urine Yellow (Yellow); Glucose, Dipstick 1000 mg/dl (Normal); Ketone-Dipstick Negative (Negative); Leukocyte Esterase-Dipstick Negative /ul (Negative); Nitrite-Dipstick Negative (Negative); Occult Blood-Urine Negative /ul (Negative); Protein-Dipstick 15 mg/dl (Negative); Specific Gravity, Urine 1.025 (1.002-1.030); Urine Bilirubin Dipstick Negative (Negative); Urine Clarity Sl. Cloudy (Clear); Urine Urobilinogen Normal (Normal)
[2021-07-19 09:54] LABS: Squamous Epithelial Cells - UA 5-10 SEEN /hpf (0-5)
[2021-07-19 10:01] LABS: Microalbumin,Random Urine 21.7 mg/L (NO RANGE EST.); Microalbumin:Creatinine Ratio 9.5 mg/g CRE (<30 mg/g CRE)
[2021-07-19 10:06] LABS: Vitamin D,25 Hydroxy 63.1 ng/mL
[2021-07-19 10:16] LABS: AST(SGOT) 24 U/L (15-37); Alanine Aminotransfer ALT/SGPT 54 U/L (16-61); Albumin, Serum 3.6 g/dL (3.2-5.0); Alkaline Phosphatase 66 U/L (45-117); Anion Gap 4 (5-15); BUN 17 mg/dL (7-18); Calcium,Total 8.9 mg/dL (8.5-10.1); Chloride 105 mmol/L (98-107); Cholesterol 138 mg/dL (200); Creatinine, Serum 0.95 mg/dL (0.70-1.30); EST Glomerular Filtration Rate 90 mL/min (>60); Est Glom Filt Rate - Afr Amer 108 mL/min (>60); Globulin 3.5 g/dL (2.2-4.2); Glucose 178 mg/dL (74-106); High Density Lipoprotein 30 mg/dL; Potassium 4.2 mmol/L (3.5-5.1); Protein, Total 7.1 g/dL (6.4-8.2); Sodium Level 138 mmol/L (136-145); Thyroid Stim Hormone (TSH) 2.07 uIU/mL (0.358-3.74); Triglycerides 126 mg/dL; Very Low Density Lipoprotein 25 mg/dL (5-40)
== END 2021-07-19 23:59 | disposition home or self-care (01) ==
LOC: LAB 08:48
PROVIDERS: PCP Internal Medicine; Referring Provider Internal Medicine; Visit Provider Internal Medicine
DX: I10 Essential (primary) hypertension (principal); E11.65 Type 2 diabetes mellitus with hyperglycemia; E55.9 Vitamin D deficiency, unspecified; E78.5 Hyperlipidemia, unspecified
CPT/HCPCS: 36415; 80053; 80061; 81001; 82043; 82306; 82570; 83036; 84443; 85025

== ENCOUNTER → 2022-01-27 | Outpatient (CLI) | payer OTHER, SELFPAY ==
[2022-01-27 10:05] LABS: Absolute Lymphocyte Count 1.74 X10^3/uL (0.83-4.51); Absolute Neutrophil Count 7.5 X10^3/uL (2.0-7.7); Basophil# 0.06 X10^3/uL; Basophil% 0.6 % (0-1); Eosinophil# 0.09 X10^3/uL; Eosinophils% 0.9 % (0-5); Hematocrit 46.8 % (40-54); Hemoglobin 15.5 g/dL (13.0-16.5); Lymphocyte # 1.74 X10^3/ul (0.83-4.51); Lymphocyte % 16.8 % (19-41); Mean Corp Hgb Conc 33.1 g/dL (32-36); Mean Corpuscular Hgb 28.9 pg (27.0-32.0); Mean Corpuscular Volume 87.2 fL (80-94); Monocyte# 0.83 X10^3/uL; NRBC Flagged by Analyzer 0 % (0-5); Neutrophil # 7.48 X10^3/uL (2.7-7.7); Neutrophil % 72.3 % (47-70); Platelet Count 228 K/mm3 (150-450); RBC Distribution Width CV 14.7 % (11.6-14.6); RBC Distribution Width SD 45.9 fl (35.1-43.9); Red Blood Count 5.37 M/mm3 (4.6-6.2); White Blood Count 10.3 K/mm3 (4.4-11.0)
[2022-01-27 10:34] LABS: Microalbumin,Random Urine 12.6 mg/L (NO RANGE EST.); Microalbumin:Creatinine Ratio 8.5 mg/g CRE (<30 mg/g CRE)
[2022-01-27 10:39] LABS: ALB/GLOB Ratio 0.9 RATIO (0.9-2.4); AST(SGOT) 22 U/L (15-37); Alanine Aminotransfer ALT/SGPT 51 U/L (16-61); Albumin, Serum 3.5 g/dL (3.2-5.0); Alkaline Phosphatase 73 U/L (45-117); Anion Gap 7 (5-15); BUN 17 mg/dL (7-18); BUN/Creat Ratio 18.3 RATIO (10-20); Calcium,Total 8.9 mg/dL (8.5-10.1); Chloride 97 mmol/L (98-107); Cholesterol 143 mg/dL (200); Creatinine, Serum 0.93 mg/dL (0.70-1.30); EST Glomerular Filtration Rate 91 mL/min (>60); Est Glom Filt Rate - Afr Amer 110 mL/min (>60); Globulin 3.7 g/dL (2.2-4.2); Glucose 177 mg/dL (74-106); High Density Lipoprotein 33 mg/dL; Potassium 3.8 mmol/L (3.5-5.1); Protein, Total 7.2 g/dL (6.4-8.2); Sodium Level 135 mmol/L (136-145); Thyroid Stim Hormone (TSH) 3.86 uIU/mL (0.358-3.74); Triglycerides 161 mg/dL; Very Low Density Lipoprotein 32 mg/dL (5-40)
== END | disposition home or self-care (01) ==
LOC: MTLAB 07:04
PROVIDERS: PCP Internal Medicine; Referring Provider Internal Medicine; Visit Provider Internal Medicine
DX: E11.9 Type 2 diabetes mellitus without complications (principal); E55.9 Vitamin D deficiency, unspecified
CPT/HCPCS: 36415; 80053; 80061; 82043; 82306; 82570; 84443; 85025

== ENCOUNTER → 2022-09-26 | Outpatient (CLI) | payer OTHER, SELFPAY ==
[2022-09-26 08:22] LABS: Microalbumin,Random Urine < 5.0 mg/L (NO RANGE EST.)
[2022-09-26 08:27] LABS: AST(SGOT) 25 U/L (15-37); Alanine Aminotransfer ALT/SGPT 46 U/L (16-61); Albumin, Serum 3.7 g/dL (3.2-5.0); Alkaline Phosphatase 62 U/L (45-117); Anion Gap 3 (5-15); BUN 15 mg/dL (7-18); Calcium,Total 10.2 mg/dL (8.5-10.1); Chloride 102 mmol/L (98-107); Cholesterol 137 mg/dL (200); Creatinine, Serum 1.07 mg/dL (0.70-1.30); EST Glomerular Filtration Rate 77 mL/min (>60); Est Glom Filt Rate - Afr Amer 94 mL/min (>60); Globulin 3.8 g/dL (2.2-4.2); Glucose 130 mg/dL (74-106); High Density Lipoprotein 34 mg/dL; Potassium 4.3 mmol/L (3.5-5.1); Protein, Total 7.5 g/dL (6.4-8.2); Sodium Level 135 mmol/L (136-145); Thyroid Stim Hormone (TSH) 3.28 uIU/mL (0.358-3.74); Triglycerides 132 mg/dL; Very Low Density Lipoprotein 26 mg/dL (5-40)
[2022-09-26 09:10] LABS: Vitamin D,25 Hydroxy 79.5 ng/mL
== END | disposition home or self-care (01) ==
PROVIDERS: PCP Internal Medicine; Referring Provider Internal Medicine Endocrinology, Diabetes & Metabolism; Visit Provider Internal Medicine Endocrinology, Diabetes & Metabolism
DX: I10 Essential (primary) hypertension (principal); E11.9 Type 2 diabetes mellitus without complications; E78.5 Hyperlipidemia, unspecified; E66.9 Obesity, unspecified; E55.9 Vitamin D deficiency, unspecified
CPT/HCPCS: 36415; 80053; 80061; 82043; 82306; 82570; 84443

== ENCOUNTER → 2022-11-25 | Outpatient (CLI) | payer OTHER, SELFPAY ==
[2022-11-25 08:41] LABS: Hemoglobin A1c 5.7 % (3.8-5.6)
== END | disposition home or self-care (01) ==
LOC: LAB 07:22
PROVIDERS: PCP Internal Medicine; Referring Provider Nurse Practitioner Family; Visit Provider Nurse Practitioner Family
DX: E11.9 Type 2 diabetes mellitus without complications (principal)
CPT/HCPCS: 36415; 83036

== ENCOUNTER → 2023-04-22 | Outpatient (CLI) | payer OTHER, SELFPAY ==
[2023-04-22 07:56] LABS: Absolute Lymphocyte Count 1.92 X10^3/uL (0.83-4.51); Absolute Neutrophil Count 6.5 X10^3/uL (2.0-7.7); Basophil# 0.07 X10^3/uL; Basophil% 0.7 % (0-1); Eosinophil# 0.23 X10^3/uL; Eosinophils% 2.4 % (0-5); Hematocrit 48.3 % (40-54); Hemoglobin 15.1 g/dL (13.0-16.5); Lymphocyte # 1.92 X10^3/ul (0.83-4.51); Lymphocyte % 19.8 % (19-41); Mean Corp Hgb Conc 31.3 g/dL (32-36); Mean Corpuscular Hgb 27.2 pg (27.0-32.0); Mean Corpuscular Volume 86.9 fL (80-94); Mean Platelet Vol. 9.7 fl (6.2-12.0); Monocyte# 0.86 X10^3/uL; Monocyte% 8.9 % (0-10); NRBC Flagged by Analyzer 0 % (0-5); Neutrophil # 6.53 X10^3/uL (2.7-7.7); Neutrophil % 67.2 % (47-70); Platelet Count 235 K/mm3 (150-450); RBC Distribution Width CV 14.3 % (11.6-14.6); RBC Distribution Width SD 45.4 fl (35.1-43.9); Red Blood Count 5.56 M/mm3 (4.6-6.2); White Blood Count 9.7 K/mm3 (4.4-11.0)
[2023-04-22 08:39] LABS: ALB/GLOB Ratio 0.9 RATIO (0.9-2.4); AST(SGOT) 20 U/L (15-37); Alanine Aminotransfer ALT/SGPT 39 U/L (16-61); Albumin, Serum 3.5 g/dL (3.2-5.0); Alkaline Phosphatase 63 U/L (45-117); Anion Gap 4 (5-15); BUN 15 mg/dL (7-18); BUN/Creat Ratio 12.7 RATIO (10-20); Calcium,Total 9.3 mg/dL (8.5-10.1); Chloride 101 mmol/L (98-107); Cholesterol 157 mg/dL (200); Creatinine, Serum 1.18 mg/dL (0.70-1.30); EST Glomerular Filtration Rate 69 mL/min (>60); Est Glom Filt Rate - Afr Amer 83 mL/min (>60); Globulin 3.7 g/dL (2.2-4.2); Glucose 207 mg/dL (74-106); High Density Lipoprotein 36 mg/dL; PSA,Total - Annual Screen 0.83 ng/mL (0.00-4.00); Potassium 4.7 mmol/L (3.5-5.1); Protein, Total 7.2 g/dL (6.4-8.2); Sodium Level 136 mmol/L (136-145); Triglycerides 152 mg/dL; Very Low Density Lipoprotein 30 mg/dL (5-40)
== END | disposition home or self-care (01) ==
PROVIDERS: PCP Internal Medicine; Referring Provider Internal Medicine; Visit Provider Internal Medicine
DX: Z00.00 Encounter for general adult medical examination without abnormal findings (principal); E11.9 Type 2 diabetes mellitus without complications; E78.5 Hyperlipidemia, unspecified; E66.9 Obesity, unspecified; I10 Essential (primary) hypertension; G47.33 Obstructive sleep apnea (adult) (pediatric); Z12.5 Encounter for screening for malignant neoplasm of prostate; Z13.220 Encounter for screening for lipoid disorders
CPT/HCPCS: 36415; 80053; 80061; 84153; 85025; G0103

== ENCOUNTER 2023-11-11 08:24 | Day surgery (SDC) | payer OTHER, SELFPAY ==
--- NOTE | 2023-11-05 12:17 | EKG12_ITS ---
Test Reason : PREOP Blood Pressure : / mmHG Vent. Rate : 080 BPM Atrial Rate : 080 BPM P-R Int : 206 ms QRS Dur : 076 ms QT Int : 416 ms P-R-T Axes : 035 017 048 degrees QTc Int : 479 ms Normal sinus rhythm Normal ECG Confirmed by Ross Villalobos ([id number]), general expeditor LUCIANO [facility] ([id number]) on 11/09/2023 6:56:17 AM Referred By: Murali Roberts Confirmed By:Ross Villalobos
[2023-11-05 13:24] LABS: Hematocrit 45.7 % (40-54); Hemoglobin 14.4 g/dL (13.0-16.5); Mean Corp Hgb Conc 31.5 g/dL (32-36); Mean Corpuscular Hgb 27.2 pg (27.0-32.0); Mean Corpuscular Volume 86.4 fL (80-94); Platelet Count 231 K/mm3 (150-450); RBC Distribution Width CV 14.6 % (11.6-14.6); RBC Distribution Width SD 45.4 fl (35.1-43.9); Red Blood Count 5.29 M/mm3 (4.6-6.2); White Blood Count 8.2 K/mm3 (4.4-11.0)
[2023-11-05 13:59] LABS: Anion Gap 8 (5-15); BUN 16 mg/dL (7-18); Calcium,Total 9.2 mg/dL (8.5-10.1); Chloride 103 mmol/L (98-107); Creatinine, Serum 0.94 mg/dL (0.70-1.30); EST Glomerular Filtration Rate 90 mL/min (>60); Est Glom Filt Rate - Afr Amer 108 mL/min (>60); Glucose 139 mg/dL (74-106); Potassium 3.9 mmol/L (3.5-5.1); Sodium Level 136 mmol/L (136-145)
[2023-11-11] VITALS (10 sets, daily range): BP systolic 118–145; BP diastolic 73–86; PULSE 75–84; RESP 16–18; TEMP 35.7–36.1; O2SAT 92–100; BMI 43.0
[2023-11-11] MEDS: Lactated Ringers 1,000 ML 15 ML IV (08:56)
[2023-11-11 09:31] LABS: Bedside Glucose 239 mg/dL (74-106)
--- NOTE | 2023-11-11 09:59 | PCM.HP.STD ---
HPI - General HPI Narrative MARIAJOSE GARZA, is a 53 M who presents for right shoulder arthroscopy, subacromial decompression, capsular release, manipulation under anesthetic. No changes to history and physical exam. Risks alternatives benefits discussed. Narcotic counseling done. Patient wishes to proceed plan for no block due to obesity and OG. right shoulder marked. warned again about stiffness, getting in to immediate PT and fracture risk of the humerus. MR#: [id number] Acct: [id number] Name: MARIAJOSE GARZA Rep #: [id number] : 1970 Provider: Dr. Murali Roberts MD Age/Sex: 53/M Location: [facility] Status: Signed Intake Vital Signs 10/01/2407:22 10/05/2410:13 10/14/2413:11 Height 6 ft 4 in 6 ft 4 in 6 ft 4 in Weight: 353 lb 6 oz 359 lb 4 oz BMI 43.0 43.7 BP 129/83 H Blood Pressure Location Rt brachial Position Sitting Respiration 16 Pulse 92 Pulse Source NIBP Temp 98.0 F Temp Source Temporal Pulse Oximetry (%) 95 Oxygen Delivery Method room air Intake Visit Reasons: RIGHT SHOULDER Chief Complaint: right shoulder pain Accompanied by: Is patient in pain?: No Allergies Penicillins Allergy (Verified 10/15/23 14:13) Hivesamoxicillin [From Augmentin] Adverse Reaction (Unknown, Verified 10/15/23 14:13) Unknownclavulanic acid [From Augmentin] Adverse Reaction (Unknown, Verified 10/15/23 14:13) Unknown Medications potassium gluconate 595 mg (99 mg) tablet 595 mg PO DAILY 03/19/21 [History Confirmed 10/15/23] aspirin 81 mg tablet,delayed release (Adult Low Dose Aspirin) 81 mg PO DAILY 04/04/21 [History Confirmed 10/15/23] cholecalciferol (vitamin D3) 25 mcg (1,000 unit) tablet 125 mcg PO DAILY 04/04/21 [History Confirmed 10/15/23] coenzyme Q10 200 mg capsule 200 mg PO DAILY 04/04/21 [History Confirmed 10/15/23] loratadine 10 mg tablet (Allergy Relief (loratadine)) 10 mg PO DAILY 04/04/21 [History Confirmed 10/15/23] insulin degludec 200 unit/mL (3 mL) subcutaneous pen (Tresiba FlexTouch U-200 insulin) 60 unit subcut DAILY 09/21/23 [History Confirmed 10/15/23] insulin lispro 100 unit/mL subcutaneous solution (Humalog U-100 Insulin) 70 unit (0.7 mL) subcut TID #189 mL 09/21/23 [Rx Confirmed 10/15/23] blood-glucose sensor (FreeStyle Arron 3 Sensor device) #6 ea 10/15/23 [Rx] dapagliflozin propanediol 10 mg tablet 10 mg PO DAILY #90 tabs 10/15/23 [Rx Confirmed 10/15/23] hydrochlorothiazide 12.5 mg tablet 12.5 mg PO DAILY #90 tabs 10/15/23 [Rx Confirmed 10/15/23] metformin 1,000 mg tablet 1,000 mg PO BID #180 tabs 10/15/23 [Rx Confirmed 10/15/23] metoprolol succinate 25 mg tablet,extended release 24 hr 25 mg PO DAILY #90 tabs 10/15/23 [Rx Confirmed 10/15/23] pravastatin 40 mg tablet 40 mg PO QHS #90 tabs 10/15/23 [Rx Confirmed 10/15/23] valsartan 80 mg tablet 80 mg PO DAILY #90 tabs 10/15/23 [Rx Confirmed 10/15/23] [facility] Medical History (Updated 10/15/23 @ 14:30 by Murali Roberts MD) Adhesive capsulitis of right shoulder Dyspnea on exertion Essential hypertension HLD (hyperlipidemia) Lung nodule OG (obstructive sleep apnea) PVD (peripheral vascular disease) Stiffness of right shoulder joint Type 2 diabetes mellitus Surgical History History of left heart catheterization (LHC) (~04/12/21) History of shoulder surgery Family History Father Hypertension CAD (coronary artery disease) Diabetes Presence of implantable cardioverter-defibrillator (ICD)Mother Breast cancerGrandmother CVA (cerebral vascular accident) DiabetesGrandfather CVA (cerebral vascular accident) Heart diseaseUncle Myocardial infarction Social History adopted: No household members: spouse housing: house number of children: 0 current occupational status: employed current occupation: customer service current occupational exposures/hazards: No pets and animals: No leisure activities: other history of recent travel: No sexually active: No Smoking Status: Former smoker Smokeless tobacco user: chewing tobacco alcohol intake: current details: Rare substance use type: does not use diet: low carbohydrate well-balanced diet: daily or most days caffeine: No eating out: 1-3 times/week during the past year weight has: remained stable what type of physical activity do you participate in: none seatbelt use: always do you feel safe at home: Yes HPI RIGHT SHOULDER Details: This documentation accurately reflects the service provided and the decisions made by me, Dr. Murali Roberts MD 10/15/23 1131. Part of today?s visit was documented by [ ], acting as scribe. MARIAJOSE GARZA is a 53 year old M here today for R shoulder pain... feels stiff. had a surgery planned. a1c was too high. a1c under controlled. had a scope debridement plan. Had L side 2011. here with his . [employer]. Work - parts sales truck body parts, computer parts. [place] - PT for 6 weeks. a1c 5.8 patient also tried multiple rounds of stretching and 2 cortisone injections last 1 was 2 years ago. Patient does sound like he had a manipulation under anesthetic and capsular release for frozen shoulder on the left side it sounds like he was booked for the same operation on the right side. This was with Dr James. Ortho Exam General General: Yes no acute distress Neurologic: Yes alert and Yes oriented x3 Psychologic: Yes reasonable and appropriate Right Shoulder Skin/Wound: Yes CDI, No ecchymosis, No erythema and No swelling Testing: Positive empty can and belly press normal; Negative Hawkin's, Neer's, Speed's, TTP Biceps, TTP AC Joint, Drop Arm, cross arm or scapular winging SHOULDER: normal motor and sens to ax nerve, and MRU and AIN/PIN Active and passive forward elevation 85 degrees external rotation to neutral. Strength in forward elevation 4+/5 painful with that maneuver external rotation strength 5/5. Supplemental Info X-ray right shoulder 4 views obtained today. This demonstrates mild degenerative changes and sclerosis at the greater tuberosity. There is also an MRI outside source on a disc. The image quality is poor Low Lakshmi magnet MRI. From [facility]. I agree with radiologist rotation mild to greater supraspinatus and anterior infraspinatus tendinosis with tiny intraosseous cystic changes at the supraspinatus enthesis. Mild superior subscapularis tendinosis. Mild to moderate AC joint osteoarthrosis. At mount interpretation there is also thickening of the inferior capsule consistent with adhesive capsulitis. Coding Level of Care Code Off vis,new,level 3 Diagnoses Right shoulder pain M25.511 Stiffness of right shoulder joint M25.611 Adhesive capsulitis of right shoulder M75.01 Assessment and Plan Assessment and Plan (1) Right shoulder pain: Status: Acute Plan: MARIAJOSE GARZA is a 53 year old M here today for R shoulder pain and stiffness in a diabetic most likely adhesive capsulitis that has been refractory to conservative management including physical therapy and injections. Patient familiar with the diagnosis prognosis and different treatment options already they had a frozen shoulder on the left side that ended up having a manipulation and capsular release. He would like to go ahead with same operation including a decompression as he does have some mild downsloping of the acromion. I let him know that after surgery we have to get this moving right away cannot delay to get into physical therapy or also discussed significant. Also there would be risk of humerus fracture and other complications associated with the surgery which I explained to the patient and his . He would like to go ahead with right shoulder arthroscopy, subacromial decompression, capsular release, manipulation under anesthetic. Pros and cons risks and benefits were discussed with the patient including but not limited to infection, pain, stiffness, bleeding, damage to surrounding structures, neurovascular injury, recurrence or retear, failure or wear of hardware or fixation, instability, fracture, deep vein thrombosis and pulmonary embolism, anesthetic risks, , patient dissatisfaction, need for further surgery and other risks. Patient understood and wished to proceed with surgery, and signed the informed consent documentation. (2) Stiffness of right shoulder joint: Status: Acute (3) Adhesive capsulitis of right shoulder: Status: Acute [facility] Medical History (Updated 11/04/23 @ 08:41 by Shyann Silva) Wears contact lenses Insulin dependent diabetes mellitus Back pain Dietary restriction Chewing tobacco nicotine dependence CPAP (continuous positive airway pressure) dependence Shortness of breath on exertion History of pain when walking History of edema History of echocardiogram History of stress test Cardiology follow-up encounter Adhesive capsulitis of right shoulder Stiffness of right shoulder joint HLD (hyperlipidemia) Dyspnea on exertion PVD (peripheral vascular disease) Lung nodule Essential hypertension Type 2 diabetes mellitus OG (obstructive sleep apnea) Home Medications ?Medication ?Instructions ?Recorded ?Last Taken ?Type potassium gluconate 595 mg (99 mg) 595 mg PO DAILY 03/19/21 04/12/21 History tablet aspirin 81 mg tablet,delayed 81 mg PO DAILY 04/04/21 11/10/23 History release (Adult Low Dose Aspirin) coenzyme Q10 200 mg capsule 200 mg PO DAILY 04/04/21 Unknown History loratadine 10 mg tablet (Allergy 10 mg PO DAILY 04/04/21 Unknown History Relief (loratadine)) insulin degludec 200 unit/mL (3 52 unit subcut QHS 09/21/23 Unknown History mL) subcutaneous pen (Tresiba FlexTouch U-200 insulin) insulin lispro 100 unit/mL 70 unit (0.7 mL) subcut TID #189 mL 09/21/23 Unknown Rx subcutaneous solution (Humalog U-100 Insulin) blood-glucose sensor (FreeStyle #6 ea 10/15/23 Unknown Rx Arron 3 Sensor device) dapagliflozin propanediol 10 mg 10 mg PO DAILY #90 tabs 10/15/23 Unknown Rx tablet hydrochlorothiazide 12.5 mg tablet 12.5 mg PO DAILY #90 tabs 10/15/23 Unknown Rx metformin 1,000 mg tablet 1,000 mg PO BID #180 tabs 10/15/23 Unknown Rx metoprolol succinate 25 mg 25 mg PO DAILY #90 tabs 10/15/23 11/11/23 08:00 Rx tablet,extended release 24 hr pravastatin 40 mg tablet 40 mg PO QHS #90 tabs 10/15/23 Unknown Rx valsartan 80 mg tablet 80 mg PO DAILY #90 tabs 10/15/23 11/11/23 08:00 Rx cholecalciferol (vitamin D3) 25 25 mcg PO DAILY 11/04/23 Unknown History mcg (1,000 unit) capsule (Vitamin D3) Allergy/AdvReac Type Severity Reaction Status Date / Time Penicillins Allergy Hives Verified 11/11/23 08:41 amoxicillin (From Augmentin) AdvReac Unknown Unknown Verified 11/11/23 08:41 clavulanic acid (From AdvReac Unknown Unknown Verified 11/11/23 08:41 Augmentin) Family History Father Hypertension CAD (coronary artery disease) Diabetes Presence of implantable cardioverter-defibrillator (ICD) Mother Breast cancer Grandmother CVA (cerebral vascular accident) Diabetes Grandfather CVA (cerebral vascular accident) Heart disease Uncle Myocardial infarction Surgical History (Updated 11/04/23 @ 08:41 by Shyann Silva) History of left heart catheterization (LHC) (~04/12/21) History of shoulder surgery Social History adopted: No household members: spouse housing: house number of children: 0 current occupational status: employed current occupation: customer service current occupational exposures/hazards: No pets and animals: No leisure activities: other history of recent travel: No sexually active: No Smoking Status: Current every day smoker tobacco type: smokeless tobacco Smokeless tobacco user: chewing tobacco alcohol intake: current details: Rare substance use type: does not use diet: low carbohydrate well-balanced diet: daily or most days caffeine: No eating out: 1-3 times/week during the past year weight has: remained stable what type of physical activity do you participate in: none seatbelt use: always do you feel safe at home: Yes Vital Signs Vital Signs Vital Signs: 11/11/23 08:42 Temperature 97 F L Temperature Source Temporal Pulse Rate 84 Respiratory Rate 16 Blood Pressure 132/81 H Blood Pressure Mean 98 Blood Pressure Source Monitor Blood Pressure Position Semi-Fowlers Blood Pressure Location Left Arm Pulse Ox 94 Oxygen Delivery Method Room Air Weight Weight: 354 lb Body Mass Index (BMI) 43.0 Results Lab / Micro Data 11/05/23 12:39 11/05/23 12:39 Labs: Laboratory Results - last 24 hr 11/11/23 08:47: POC Glucose 239 H
[2023-11-11] MEDS: Cefazolin 3 GM in 0.9% Normal Saline (100mL Bag) 100 ML IV (10:20)
[2023-11-11] MEDS: Epinephrine (1 mg/ml) 1 MG/ML VIAL (11:05)
[2023-11-11] MEDS: Bupivacaine 0.25% 30 ML Vial (11:57)
[2023-11-11] MEDS: Sugammadex Sodium 200 MG/2 ML VIAL IV (12:03)
--- NOTE | 2023-11-11 12:08 | PCM.OPRPT ---
Problems Associated Problem List Diagnoses (1) Right shoulder pain: (2) Adhesive capsulitis of right shoulder: (3) Stiffness of right shoulder joint: Report of Operation Pre-Operative Diagnosis: right shoulder impingement and adhesive capsulitis Post-Operative Diagnosis: same Surgery/Procedure Performed:: right shoulder arthroscopy, SAD, debridement, capsular release, manipulation under anesthesia Surgeon: Murali Roberts Type of Anesthesia: General and Local Anesthesiologist: Fredy Garcia Estimated Blood Loss (mL): 25 Description of Procedure: Patient brought to the operating theater. Placed on the operating room table. Administered general anesthetic. 3 g IV Ancef administered prior to this of procedure. Patient transferred right side up lateral decubitus beanbag positioner. Axillary roll used. SCDs on the legs. All bony prominences padded. Upper extremity and 10 pounds of traction in line 45 degrees of abduction. Upper extremity prepped and draped in the usual sterile fashion allowing over 3 minutes drying time prior to draping, chlorhexidine based solution. Preoperative timeout performed to confirm the site patient and the surgery. Began by inserting the arthroscope into the intra-articular portion of the shoulder. Shoulder was quite tight. Established a cannula through the rotator interval 7 x 7 mm Arthrex. Debrided and excised the rotator interval tissue. Biceps was left intact. There is a small split at the base of the biceps tendon otherwise it was stable. Subscapularis appeared stable and normal fraying circumferentially around the labrum I debrided that as well as slight fraying of the biceps tendon. There is obvious synovitis and capsular tightness throughout. I placed a posterior cannula as well. I visualized anteriorly as well as posteriorly to perform a circumferential release of the capsule. This I then fully forward elevated and external rotation the shoulder is able to get 175 degrees of forward elevation. External rotation with the arm and side of the body also performed gently and I did release more tissue with that maneuver with the patient able to get to 50 degrees of external rotation from neutral preoperatively. Forward elevation preoperatively was only about 95 degrees, achieved full FE after the release and LUIS E. I reinserted the arthroscope to again irrigate the intra-articular portion the shoulder and take final arthroscopy pictures after the capsular release and manipulation under anesthetic. I then inserted the arthroscope in the subacromial space established a lateral portal. There is moderate to high amount of inflammatory bursitis I performed a complete bursectomy. I performed a subacromial decompression for the leading edge of the acromion and this was quite a tight space could barely fit the probe in there therefore I did about a 4 mm subacromial decompression. I probed the superior and inferior aspect of the rotator cuff tendons which was normal and no obvious tears there. Case terminated wound thoroughly irrigated portals closed with 3-0 Monocryl suture. Skin cleaned with wet dry dressing 10 cc quarter percent bupivacaine instilled in around the portal sites. Steri strips, Adaptic 4 x 4 gauze ABD dressings cloth tape and pillow sling placed on the upper extremity. Patient woke up from general acetic transfer off the operating table to postanesthetic care unit in stable addition. All sponge and needle and instrument counts were correct plan for the patient immediate range of motion and PT and follow-up in the office in 2 days time. cpt 92192?, 16023? Complications none Admit VTE Documentation VTE Present on Admission: No VTE Mechan Device Prophylaxis: SCD's VTE Pharm Prophylaxis ordered?: No Reason prophylaxis not ordered:: Treatment Not Indicated Procedures Musculoskeletal 20xxx-29xxx: Other Procedure See Report
--- NOTE | 2023-11-11 12:23 | EX.PCM.DISCH ---
Discharge Instructions Diet Discharge Diet: No restrictions Activity Discharge Activity: Return to Normal Activity May resume sexual activity in: No Restrictions Lifting Restrictions: immediate ROM as tolerate, start PT tomorrow, dc sling quick as possible Keep extremity elevated above heart level: Operative Extremity Dressing / Incision Call your doctor if your incision/area has: Continuous Slow Oozing, Sudden Increased Bleeding, Increased Pain/ Swelling, Increased Redness, Foul Smelling Discharge and Swelling at the incision site Remove Dressing in: 2 days Cleanse incision/area with: Do not get Incision Wet Follow Up Care Please Follow Up With: Murali Roberts MD When: 2 days Test Results: Test results from this visit will be discussed in further detail at your follow-up appointment, if applicable. Discharge Plan Admission Attending Provider: Murali Roberts Primary Care Provider: Neida Huang Instructions Print Language: Bulgarian Discharge Orders/Prescriptions Prescriptions: New oxycodone-acetaminophen [Endocet] 5-325 mg tablet 1 tab PO Q4H MDD 6 PRN (Reason: pain) 5 Days Qty: 30 0RF No Action aspirin [Adult Low Dose Aspirin] 81 mg tablet,delayed release (DR/EC) 81 mg PO DAILY loratadine [Allergy Relief (loratadine)] 10 mg tablet 10 mg PO DAILY coenzyme Q10 200 mg capsule 200 mg PO DAILY potassium gluconate 595 mg (99 mg) tablet 595 mg PO DAILY insulin degludec [Tresiba FlexTouch U-200] 200 unit/mL (3 mL) insulin pen 52 unit subcut QHS insulin lispro [Humalog U-100 Insulin] 100 unit/mL solution 70 unit subcut TID Qty: 189 3RF cholecalciferol (vitamin D3) [Vitamin D3] 25 mcg (1,000 unit) capsule 25 mcg PO DAILY valsartan 80 mg tablet 80 mg PO DAILY Qty: 90 3RF pravastatin 40 mg tablet 40 mg PO QHS Qty: 90 3RF metoprolol succinate 25 mg tablet extended release 24 hr 25 mg PO DAILY Qty: 90 3RF metformin 1,000 mg tablet 1,000 mg PO BID Qty: 180 3RF hydrochlorothiazide 12.5 mg tablet 12.5 mg PO DAILY Qty: 90 3RF dapagliflozin propanediol 10 mg tablet 10 mg PO DAILY Qty: 90 3RF (DME) FreeStCogniTens Arron 3 Sensor Device See Rx Instructions .Route Qty: 6 3RF Rx Instructions: 1 sensor q 14 days Referrals / Follow Up: Neida Huang MD [Primary Care Provider] - Murali Roberts MD [Med Staff - Active Staff] - Disposition Disposition (needs filled in before D/C Order can be placed): Home, Self Care
[2023-11-11 13:32] LABS: Bedside Glucose 268 mg/dL (74-106)
[2023-11-11] MEDS: oxyCODONE 5 MG Tablet PO (13:59)
--- NOTE | 2023-11-11 15:24 | SUR.PHASEII ---
pt left d/c instructions- pt called and will send in the mail to him
== END 2023-11-11 14:19 | disposition home or self-care (01) ==
LOC: SDC 08:25 → AC 08:26
PROVIDERS: Anesthesiology; PCP Internal Medicine; Referring Provider Orthopaedic Surgery Sports Medicine; Visit Provider Orthopaedic Surgery Sports Medicine
PROC: (CPT 29805; principal; 2023-11-11 10:15)
DX: M75.01 Adhesive capsulitis of right shoulder (principal); Z68.41 Body mass index [BMI] 40.0-44.9, adult; E11.51 Type 2 diabetes mellitus with diabetic peripheral angiopathy without gangrene; Z79.4 Long term (current) use of insulin; M25.611 Stiffness of right shoulder, not elsewhere classified; M25.511 Pain in right shoulder; G47.33 Obstructive sleep apnea (adult) (pediatric); I10 Essential (primary) hypertension; E78.5 Hyperlipidemia, unspecified; E66.9 Obesity, unspecified; F17.220 Nicotine dependence, chewing tobacco, uncomplicated; Z79.82 Long term (current) use of aspirin; Z79.84 Long term (current) use of oral hypoglycemic drugs; Z79.899 Other long term (current) drug therapy
CPT/HCPCS: 23020; 36415; 80048; 82962; 85027; 93005; J7120; J2405

== ENCOUNTER 2023-12-23 07:00 | Outpatient (RCR) | payer OTHER, SELFPAY | END 2023-12-23 19:00 | disposition home or self-care (01) | LOC: PT 07:00 | PROVIDERS: PCP Internal Medicine; Referring Provider Orthopaedic Surgery Sports Medicine; Visit Provider Orthopaedic Surgery Sports Medicine | DX: M25.511 Pain in right shoulder (principal); M25.611 Stiffness of right shoulder, not elsewhere classified | CPT/HCPCS: 97110; 97140; 97162 ==

== ENCOUNTER → 2024-03-25 | Outpatient (CLI) | payer OTHER, SELFPAY ==
[2024-03-25 08:33] LABS: Cholesterol 130 mg/dL (200); High Density Lipoprotein 36 mg/dL; Triglycerides 126 mg/dL; Very Low Density Lipoprotein 25 mg/dL (5-40)
[2024-03-25 10:23] LABS: Vitamin D,25 Hydroxy 49.9 ng/mL
[2024-03-25 10:43] LABS: Microalbumin,Random Urine 11.5 mg/L (NO RANGE EST.); Microalbumin:Creatinine Ratio 8.6 mg/g CRE (<30 mg/g CRE)
== END | disposition home or self-care (01) ==
LOC: LAB 07:16
PROVIDERS: PCP Internal Medicine; Referring Provider Nurse Practitioner Family; Visit Provider Nurse Practitioner Family
DX: E11.65 Type 2 diabetes mellitus with hyperglycemia (principal); Z79.4 Long term (current) use of insulin; E55.9 Vitamin D deficiency, unspecified
CPT/HCPCS: 36415; 80061; 82043; 82306; 82570; 84443

== ENCOUNTER 2024-06-13 07:44 | Day surgery (SDC) | payer BC, SELFPAY ==
--- NOTE | 2024-06-09 17:32 | PAT.ANE_ITS ---
Pre-Assessment Diagnosis/Proposed Procedure Planned Operative Procedure(s): COLONOSCOPY Anesthesia History Anesthesia History - occasional caregiver: Anesthesia History - occasional caregiver Hx Hospitalization No 06/09/24 13:56 Any Problems With Anesthesia No 06/09/24 13:56 Cholinesterase deficiency No 06/09/24 13:56 You/Your Family Experience No 06/09/24 13:56 fever (hyperthermia) with Relationship Recent Exposure to Contagious No 11/11/23 08:42 Disease Does patient have nerve No 06/09/24 13:56 stimulator Patient instructed to have device shut off --Does patient have Pacemaker or ICD? When Was Last Pacemaker Check QUESTION #4 FULL TEXT: You/Your Family Experience fever (hyperthermia) with Anesthesia Last Oral Intake Last Oral intake: Last Oral Intake NPO since Meds taken in AM with sips of water? Meds patient instructed to take am of surgery PONV PONV - occasional caregiver: PONV - occasional caregiver Female No 06/09/24 13:56 HX of Motion Sickness No 06/09/24 13:56 HX of N/V After Surgery No 06/09/24 13:56 Non-Smoker Yes 06/09/24 13:56 Duration of Surgery greater No 06/09/24 13:56 than 60 minutes Number of Risk Factors 1 06/09/24 13:56 PONV Score Low Risk 06/09/24 13:56 Height & Weight Height & Weight: Anesthesia: Height & Weight Height 6 ft 4 in 04/18/24 13:09 Respiratory Assessment Respiratory Assessment - occasional caregiver: Respiratory Tract Infection Hx - occasional caregiver Hx Respiratory Tract Infection Yes: COLD SX, 3 WEEKS AGO 06/09/24 13:56 STOP Sleep Apnea STOP Sleep Apnea - occasional caregiver: STOP Sleep Apnea - occasional caregiver Hx Hypertension Yes: CONTROLLED WITH MEDS 06/09/24 13:56 Hx Sleep Apnea Yes 06/09/24 13:56 CPAP No 06/09/24 13:56 BIPAP Yes: NON COMPLIANT 06/09/24 13:56 Do you snore loudly (louder than talking or can be heard Do you often feel tired/ fatigued/ sleepy during daytime? Has anyone observed you stop breathing during sleep? STOP Results Positive 06/09/24 13:56 QUESTION #5 FULL TEXT : Do you snore loudly (louder than talking or can be heard through closed doors)? Tobacco Use History Tobacco Use History - occasional caregiver: Tobacco Use History - occasional caregiver Tobacco Use Smoking Status Current every day smoker 06/09/24 13:56 Hx Tobacco Use Yes 06/09/24 13:56 Years Smoking Packs Smoked per Day Smoking Cessation Date was within the last 15 years Hx Smoking Cessation Date Hx Smoking Cessation Counseling Hematologic Medial History Hematologic Hx - occasional caregiver: Hematologic Medical Hx - regional clinical director Hx of Blood Transfusion No 06/09/24 13:56 Hx of Transfusion in last 3 No 06/09/24 13:56 Months Date of Last Transfusion (if within last 3 months) Ever experience any problems No 06/09/24 13:56 with transfusion(s)? Specify any problems Hx of Preganancy in last 3 N/A 06/09/24 13:56 Months Nurse Filling Out Transfusion [email or web address] 06/09/24 13:56 & Questions: Date: 06/09/24 06/09/24 13:56 Time: 13:59 06/09/24 13:56 Patient unable to answer at this time (ie. confused, unrespo /Reproduction History /Reproductive History - occasional caregiver: /Reproductive Hx- occasional caregiver Hx Now No 06/09/24 13:56 Gestational Age (in weeks): EDC: Hx Hx Para Hx Section SAB No 06/09/24 13:56 PFSH Medical History (Updated 06/09/24 @ 14:02 by Brett Easley) Gastric reflux Colon cancer screening Wears contact lenses Insulin dependent diabetes mellitus Back pain Dietary restriction Chewing tobacco nicotine dependence CPAP (continuous positive airway pressure) dependence Shortness of breath on exertion History of pain when walking History of edema History of echocardiogram History of stress test Cardiology follow-up encounter Adhesive capsulitis of right shoulder Stiffness of right shoulder joint HLD (hyperlipidemia) Dyspnea on exertion PVD (peripheral vascular disease) Lung nodule Essential hypertension Type 2 diabetes mellitus OG (obstructive sleep apnea) Home Medications ?Medication ?Instructions ?Recorded ?Last Taken ?Type potassium gluconate 595 mg (99 mg) 595 mg PO DAILY 03/19/21 04/12/21 History tablet aspirin 81 mg tablet,delayed 81 mg PO DAILY 04/04/21 11/10/23 History release (Adult Low Dose Aspirin) coenzyme Q10 200 mg capsule 200 mg PO DAILY 04/04/21 Unknown History loratadine 10 mg tablet (Allergy 10 mg PO DAILY 04/04/21 Unknown History Relief (loratadine)) insulin degludec 200 unit/mL (3 40 unit subcut QHS 09/21/23 Unknown History mL) subcutaneous pen (Tresiba FlexTouch U-200 insulin) dapagliflozin propanediol 10 mg 10 mg PO DAILY #90 tabs 10/15/23 Unknown Rx tablet hydrochlorothiazide 12.5 mg tablet 12.5 mg PO DAILY #90 tabs 10/15/23 Unknown Rx metformin 1,000 mg tablet 1,000 mg PO BID #180 tabs 10/15/23 Unknown Rx metoprolol succinate 25 mg 25 mg PO DAILY #90 tabs 10/15/23 11/11/23 08:00 Rx tablet,extended release 24 hr valsartan 80 mg tablet 80 mg PO DAILY #90 tabs 10/15/23 11/11/23 08:00 Rx cholecalciferol (vitamin D3) 25 25 mcg PO DAILY 11/04/23 Unknown History mcg (1,000 unit) capsule (Vitamin D3) blood-glucose sensor (FreeStyle #6 ea 04/14/24 Unknown Rx Arron 3 Plus Sensor device) tirzepatide 5 mg/0.5 mL 5 mg (0.5 mL) subcut QWEEK #6 mL 05/17/24 06/04/24 Rx subcutaneous pen injector (Mounjaro) insulin lispro 100 unit/mL 65 unit subcut TID 06/09/24 Unknown History subcutaneous solution (Humalog U-100 Insulin) pravastatin 40 mg tablet 40 mg PO .QOD 06/09/24 Unknown History Allergy/AdvReac Type Severity Reaction Status Date / Time Penicillins Allergy Hives Verified 06/09/24 13:52 amoxicillin (From Augmentin) AdvReac Unknown Unknown Verified 06/09/24 13:52 clavulanic acid (From AdvReac Unknown Unknown Verified 06/09/24 13:52 Augmentin) Family History Father Hypertension CAD (coronary artery disease) Diabetes Presence of implantable cardioverter-defibrillator (ICD) Mother Breast cancer Grandmother CVA (cerebral vascular accident) Diabetes Grandfather CVA (cerebral vascular accident) Heart disease Uncle Myocardial infarction Surgical History S/P arthroscopy of right shoulder History of left heart catheterization (LHC) (~04/12/21) History of shoulder surgery Social History adopted: No household members: spouse housing: house number of children: 0 current occupational status: employed current occupation: customer service current occupational exposures/hazards: No pets and animals: No leisure activities: other history of recent travel: No sexually active: No Smoking Status: Current every day smoker tobacco type: smokeless tobacco Smokeless tobacco user: chewing tobacco alcohol intake: current details: Rare substance use type: does not use diet: low carbohydrate well-balanced diet: daily or most days caffeine: No eating out: 1-3 times/week during the past year weight has: remained stable what type of physical activity do you participate in: none seatbelt use: always do you feel safe at home: Yes Audit: Pertinent Findings Pertinent Findings EKG Perinent findings: 11/09/2023 normal sinus rhythm normal EKG rate 80 bpm Echo (EF%) pertinent findings: 01/18/2021 ejection fraction 55% mild focal aortic valve calcification Heart catheterization pertinent findings: 04/12/2021 indication suspected CAD conclusion normal coronary arteries Consult pertinent findings: Cardiology 04/04/2021 dyspnea workup showed abnormal stress and catheterization showed no coronary artery disease Recommendation Anesthesia Recommendation Anesthesia recommendation: OPTIMIZED for anesthesia
[2024-06-13] VITALS (8 sets, daily range): BP systolic 91–123; BP diastolic 67–73; PULSE 82–97; RESP 16; TEMP 36.3–37.3; O2SAT 93–98; BMI 42.5
--- NOTE | 2024-06-13 08:13 | H&P.OPEN ---
[facility] - General General Date of Service: 06/13/24 [facility] Narrative MARIAJOSE GARZA, is a 54 M who presents for screening colonoscopy. Patient never had previous colonoscopy. Patient denies any family history of colon cancer. Patient denies any chronic abdominal pain/nausea/vomiting/reflux. Patient has bowel movements every other day. Patient did have episode of bright red blood when wiping about 2 months ago but only 1 episode.. [facility] Medical History (Updated 06/09/24 @ 14:02 by Brett Easley) Gastric reflux Colon cancer screening Wears contact lenses Insulin dependent diabetes mellitus Back pain Dietary restriction Chewing tobacco nicotine dependence CPAP (continuous positive airway pressure) dependence Shortness of breath on exertion History of pain when walking History of edema History of echocardiogram History of stress test Cardiology follow-up encounter Adhesive capsulitis of right shoulder Stiffness of right shoulder joint HLD (hyperlipidemia) Dyspnea on exertion PVD (peripheral vascular disease) Lung nodule Essential hypertension Type 2 diabetes mellitus OG (obstructive sleep apnea) Home Medications ?Medication ?Instructions ?Recorded ?Last Taken ?Type potassium gluconate 595 mg (99 mg) 595 mg PO DAILY 03/19/21 04/12/21 History tablet aspirin 81 mg tablet,delayed 81 mg PO DAILY 04/04/21 11/10/23 History release (Adult Low Dose Aspirin) coenzyme Q10 200 mg capsule 200 mg PO DAILY 04/04/21 Unknown History loratadine 10 mg tablet (Allergy 10 mg PO DAILY 04/04/21 Unknown History Relief (loratadine)) insulin degludec 200 unit/mL (3 40 unit subcut QHS 09/21/23 Unknown History mL) subcutaneous pen (Tresiba FlexTouch U-200 insulin) dapagliflozin propanediol 10 mg 10 mg PO DAILY #90 tabs 10/15/23 Unknown Rx tablet hydrochlorothiazide 12.5 mg tablet 12.5 mg PO DAILY #90 tabs 10/15/23 06/13/24 Rx metformin 1,000 mg tablet 1,000 mg PO BID #180 tabs 10/15/23 Unknown Rx metoprolol succinate 25 mg 25 mg PO DAILY #90 tabs 10/15/23 11/11/23 08:00 Rx tablet,extended release 24 hr valsartan 80 mg tablet 80 mg PO DAILY #90 tabs 10/15/23 06/13/24 Rx cholecalciferol (vitamin D3) 25 25 mcg PO DAILY 11/04/23 Unknown History mcg (1,000 unit) capsule (Vitamin D3) blood-glucose sensor (FreeStyle #6 ea 04/14/24 Unknown Rx Arron 3 Plus Sensor device) tirzepatide 5 mg/0.5 mL 5 mg (0.5 mL) subcut QWEEK #6 mL 05/17/24 06/04/24 Rx subcutaneous pen injector (Mounjaro) insulin lispro 100 unit/mL 65 unit subcut TID 06/09/24 Unknown History subcutaneous solution (Humalog U-100 Insulin) pravastatin 40 mg tablet 40 mg PO .QOD 06/09/24 Unknown History Allergy/AdvReac Type Severity Reaction Status Date / Time Penicillins Allergy Hives Verified 06/13/24 07:59 amoxicillin (From Augmentin) AdvReac Unknown Unknown Verified 06/13/24 07:59 clavulanic acid (From AdvReac Unknown Unknown Verified 06/13/24 07:59 Augmentin) Family History Father Hypertension CAD (coronary artery disease) Diabetes Presence of implantable cardioverter-defibrillator (ICD) Mother Breast cancer Grandmother CVA (cerebral vascular accident) Diabetes Grandfather CVA (cerebral vascular accident) Heart disease Uncle Myocardial infarction Surgical History S/P arthroscopy of right shoulder History of left heart catheterization (LHC) (~04/12/21) History of shoulder surgery Social History adopted: No household members: spouse housing: house number of children: 0 current occupational status: employed current occupation: customer service current occupational exposures/hazards: No pets and animals: No leisure activities: other history of recent travel: No sexually active: No Smoking Status: Current every day smoker tobacco type: smokeless tobacco Smokeless tobacco user: chewing tobacco alcohol intake: current details: Rare substance use type: does not use diet: low carbohydrate well-balanced diet: daily or most days caffeine: No eating out: 1-3 times/week during the past year weight has: remained stable what type of physical activity do you participate in: none seatbelt use: always do you feel safe at home: Yes Past Medical/Surgical History Planned Operation Planned Operative Procedure(s): COLONOSCOPY Previous Hospitalizations/Surgeries HX Hospitalizations: No Any Problems With Anesthesia: No You/Your Family Experience Fever (Hyperthermia) With Anes: No Cholinesterase deficiency: No Cardiovascular Hx Heart Attack: No Hx Congestive Heart Failure: No Hx Hypertension: Yes (CONTROLLED WITH MEDS) Hx Internal Defibrillator: No Hx Pacemaker: No Hx Cardiac Catheterization: No Respiratory Hx Chronic Obstructive Pulmonary Disease (COPD): No Hx Asthma: No Hx Emphysema: No Hx Sleep Apnea: Yes CPAP: No BIPAP: Yes (NON COMPLIANT) Hx Respiratory Tract Infection/Cold (presently): Yes (COLD SX, 3 WEEKS AGO) Result (for STOP score): Positive Smoking Status: Current every day smoker Gastrointestinal Hx Ulcer: No Neurological Hx Seizures: No Hx Transient Ischemic Attacks (TIA): No Hx Multiple Sclerosis: No Hx Parkinson's Disease: No Hx Head/Neck Injury: No Hx Headaches: No Hx Back Injury/Pain: Yes (HERNIATED DISC) Does patient have nerve stimulator: No Blood Disorder Hx High Cholesterol: No Hx Hepatitis: No Hx Cirrhosis: No Reproduction : No Endocrine Hx Diabetes: Yes Psycho/Social Hx Substance Use: No Hx Alcohol Use: No Hx Anxiety: No Hx Depression: No Hx Dementia: No Miscellaneous Hx Cancer: No Recent Exposure to Contagious Disease: No Allergies Penicillins Allergy (Verified 06/13/24 07:59) Hives amoxicillin (From Augmentin) Adverse Reaction (Unknown, Verified 06/13/24 07:59) Unknown clavulanic acid (From Augmentin) Adverse Reaction (Unknown, Verified 06/13/24 07:59) Unknown Discharge After D/C, Where Do you Plan to Go: Return Home Vital Signs Vital Signs Vital Signs: 06/13/24 08:01 06/13/24 08:01 Temperature 97.4 F L Temperature Source Temporal Pulse Rate 97 Respiratory Rate 16 Respiratory Pattern Normal Blood Pressure 123/70 H Blood Pressure Mean 87 Blood Pressure Source Monitor Blood Pressure Position Sitting Blood Pressure Location Right Arm Pulse Ox 98 Oxygen Delivery Method Room Air Weight Weight: 348 lb 15.868 oz Body Mass Index (BMI) 42.5 Physical Exam Const alert, oriented x3 and no apparent distress HEENT normocephalic and head/scalp atraumatic Resp normal respiratory effort Cardio regular rate GI soft to palpation and non-tender; Negative for non-distended Palpation: Negative for guarding Extremity no clubbing, cyanosis or edema Skin no rashes or lesions noted Neuro CN's II-XII intact bilaterally Psych mental status grossly normal Assessment & Plan Assessment/Plan (1) Colon cancer screening: Surgery Risks - Colonoscopy I discussed with the patient the risks of the procedure: Yes Risks Include but are not Limited To: Risks include but are not limited to: Bleeding, perforation requiring further surgery, inability to complete colonoscopy requiring barium enema.
[2024-06-13 08:40] LABS: Bedside Glucose 201 mg/dL (74-106)
--- NOTE | 2024-06-13 09:17 | PRE.ANES_ITS ---
ASA Classification* ASA Classification ASA Classification: 3 Assessment & Plan Anesthesia* Anesthesia Assessment Anesthesia Assessment: Discussed sedation and/or anesthesia options, risks, benefits, and alternatives with patient/parents/legal guardian/POA. Questions invited. The patient/parents/legal guardian/POA seems to understand and agrees to proceed with anesthesia plan. Reviewed the physical assessment, medical history, allergy history and patient home medications list prior to surgery/procedure/anesthetic and documented any changes. Performed airway and anesthesia risk assessments. Anesthesia Type Anesthesia Type: MAC Anesthesia Focused Assessment* Temperature: 97.4 F Pulse Rate: 97 Blood Pressure: 123/70 Respiratory Rate: 16 Pulse Ox: 98 Airway Assessment Mouth opens: >3 cm Mallampati Score: II Focused Labs Anesthesia Preop lab: CBC WBC 8.2 K/mm3 (4.4-11.0) 11/05/23 12:39 RBC 5.29 M/mm3 (4.6-6.2) 11/05/23 12:39 Hgb 14.4 g/dL (13.0-16.5) 11/05/23 12:39 Hct 45.7 % (40-54) 11/05/23 12:39 Plt Count 231 K/mm3 (150-450) 11/05/23 12:39 CHEMISTRY Potassium 3.9 mmol/L (3.5-5.1) 11/05/23 12:39 Sodium 136 mmol/L (136-145) 11/05/23 12:39 BUN 16 mg/dL (7-18) 11/05/23 12:39 Creatinine 0.94 mg/dL (0.70-1.30) 11/05/23 12:39 Glucose 139 mg/dL (74-106) H 11/05/23 12:39 POC Glucose 201 mg/dL (74-106) H 06/13/24 08:10 TSH 2.350 uIU/mL (0.358-3.740) 03/25/24 07:19 COAG PT 13.1 SECONDS (11.7-14.9) 04/08/21 12:29 Pre-Assessment Diagnosis/Proposed Procedure Planned Operative Procedure(s): COLONOSCOPY Anesthesia History Anesthesia History - electric range preparer: Anesthesia History - electric range preparer Hx Hospitalization No 06/13/24 08:14 Any Problems With Anesthesia No 06/13/24 08:14 Cholinesterase deficiency No 06/13/24 08:14 You/Your Family Experience No 06/13/24 08:14 fever (hyperthermia) with Relationship Recent Exposure to Contagious No 06/13/24 08:14 Disease Does patient have nerve No 06/13/24 08:14 stimulator Patient instructed to have device shut off --Does patient have Pacemaker No 06/13/24 08:01 or ICD? When Was Last Pacemaker Check QUESTION #4 FULL TEXT: You/Your Family Experience fever (hyperthermia) with Anesthesia Last Oral Intake Last Oral intake: Last Oral Intake NPO since 05:00 06/13/24 08:01 Meds taken in AM with sips of Yes 06/13/24 08:01 water? Meds patient instructed to take am of surgery PONV PONV - electric range preparer: PONV - electric range preparer Female No 06/09/24 13:56 HX of Motion Sickness No 06/09/24 13:56 HX of N/V After Surgery No 06/09/24 13:56 Non-Smoker Yes 06/09/24 13:56 Duration of Surgery greater No 06/09/24 13:56 than 60 minutes Number of Risk Factors 1 06/09/24 13:56 PONV Score Low Risk 06/09/24 13:56 Height & Weight Height & Weight: Anesthesia: Height & Weight Height 6 ft 4 in 06/13/24 08:01 Weight: 158.3 kg 06/13/24 08:01 Body Mass Index (BMI) 42.5 06/13/24 08:01 Respiratory Assessment Respiratory Assessment - electric range preparer: Respiratory Tract Infection Hx - electric range preparer Hx Respiratory Tract Infection Yes: COLD SX, 3 WEEKS AGO 06/13/24 08:14 STOP Sleep Apnea STOP Sleep Apnea - electric range preparer: STOP Sleep Apnea - electric range preparer Hx Hypertension Yes: CONTROLLED WITH MEDS 06/13/24 08:14 Hx Sleep Apnea Yes 06/13/24 08:14 CPAP No 06/13/24 08:14 BIPAP Yes: NON COMPLIANT 06/13/24 08:14 Do you snore loudly (louder than talking or can be heard Do you often feel tired/ fatigued/ sleepy during daytime? Has anyone observed you stop breathing during sleep? STOP Results Positive 06/13/24 08:33 QUESTION #5 FULL TEXT : Do you snore loudly (louder than talking or can be heard through closed doors)? Tobacco Use History Tobacco Use History - electric range preparer: Tobacco Use History - electric range preparer Tobacco Use Smoking Status Current every day smoker 06/13/24 08:14 Hx Tobacco Use Yes 06/09/24 13:56 Years Smoking Packs Smoked per Day Smoking Cessation Date was within the last 15 years Hx Smoking Cessation Date Hx Smoking Cessation Counseling Hematologic Medial History Hematologic Hx - electric range preparer: Hematologic Medical Hx - marriage and family therapist Hx of Blood Transfusion No 06/09/24 13:56 Hx of Transfusion in last 3 No 06/09/24 13:56 Months Date of Last Transfusion (if within last 3 months) Ever experience any problems No 06/09/24 13:56 with transfusion(s)? Specify any problems Hx of Preganancy in last 3 N/A 06/09/24 13:56 Months Nurse Filling Out Transfusion [email or web address] 06/09/24 13:56 & Questions: Date: 06/09/24 06/09/24 13:56 Time: 13:59 06/09/24 13:56 Patient unable to answer at this time (ie. confused, unrespo /Reproduction History /Reproductive History - electric range preparer: /Reproductive Hx- electric range preparer Hx Now No 06/13/24 08:14 Gestational Age (in weeks): EDC: Hx Hx Para Hx Section SAB No 06/09/24 13:56 PFSH Medical History Gastric reflux Colon cancer screening Wears contact lenses Insulin dependent diabetes mellitus Back pain Dietary restriction Chewing tobacco nicotine dependence CPAP (continuous positive airway pressure) dependence Shortness of breath on exertion History of pain when walking History of edema History of echocardiogram History of stress test Cardiology follow-up encounter Adhesive capsulitis of right shoulder Stiffness of right shoulder joint HLD (hyperlipidemia) Dyspnea on exertion PVD (peripheral vascular disease) Lung nodule Essential hypertension Type 2 diabetes mellitus OG (obstructive sleep apnea) Home Medications ?Medication ?Instructions ?Recorded ?Last Taken ?Type potassium gluconate 595 mg (99 mg) 595 mg PO DAILY 03/19/21 04/12/21 History tablet aspirin 81 mg tablet,delayed 81 mg PO DAILY 04/04/21 11/10/23 History release (Adult Low Dose Aspirin) coenzyme Q10 200 mg capsule 200 mg PO DAILY 04/04/21 Unknown History loratadine 10 mg tablet (Allergy 10 mg PO DAILY 04/04/21 Unknown History Relief (loratadine)) insulin degludec 200 unit/mL (3 40 unit subcut QHS 09/21/23 Unknown History mL) subcutaneous pen (Tresiba FlexTouch U-200 insulin) dapagliflozin propanediol 10 mg 10 mg PO DAILY #90 tabs 10/15/23 Unknown Rx tablet hydrochlorothiazide 12.5 mg tablet 12.5 mg PO DAILY #90 tabs 10/15/23 06/13/24 Rx metformin 1,000 mg tablet 1,000 mg PO BID #180 tabs 10/15/23 Unknown Rx metoprolol succinate 25 mg 25 mg PO DAILY #90 tabs 10/15/23 11/11/23 08:00 Rx tablet,extended release 24 hr valsartan 80 mg tablet 80 mg PO DAILY #90 tabs 10/15/23 06/13/24 Rx cholecalciferol (vitamin D3) 25 25 mcg PO DAILY 11/04/23 Unknown History mcg (1,000 unit) capsule (Vitamin D3) blood-glucose sensor (FreeStyle #6 ea 04/14/24 Unknown Rx Arron 3 Plus Sensor device) tirzepatide 5 mg/0.5 mL 5 mg (0.5 mL) subcut QWEEK #6 mL 05/17/24 06/04/24 Rx subcutaneous pen injector (Fermin) insulin lispro 100 unit/mL 65 unit subcut TID 06/09/24 Unknown History subcutaneous solution (Humalog U-100 Insulin) pravastatin 40 mg tablet 40 mg PO .QOD 06/09/24 Unknown History Allergy/AdvReac Type Severity Reaction Status Date / Time Penicillins Allergy Hives Verified 06/13/24 07:59 amoxicillin (From Augmentin) AdvReac Unknown Unknown Verified 06/13/24 07:59 clavulanic acid (From AdvReac Unknown Unknown Verified 06/13/24 07:59 Augmentin) Family History Father Hypertension CAD (coronary artery disease) Diabetes Presence of implantable cardioverter-defibrillator (ICD) Mother Breast cancer Grandmother CVA (cerebral vascular accident) Diabetes Grandfather CVA (cerebral vascular accident) Heart disease Uncle Myocardial infarction Surgical History S/P arthroscopy of right shoulder History of left heart catheterization (LHC) (~04/12/21) History of shoulder surgery Social History adopted: No household members: spouse housing: house number of children: 0 current occupational status: employed current occupation: customer service current occupational exposures/hazards: No pets and animals: No leisure activities: other history of recent travel: No sexually active: No Smoking Status: Current every day smoker tobacco type: smokeless tobacco Smokeless tobacco user: chewing tobacco alcohol intake: current details: Rare substance use type: does not use diet: low carbohydrate well-balanced diet: daily or most days caffeine: No eating out: 1-3 times/week during the past year weight has: remained stable what type of physical activity do you participate in: none seatbelt use: always do you feel safe at home: Yes Review of Systems (Anesthesia) ROS Narrative System reviewed and no additional complaints, except as documented.
--- NOTE | 2024-06-13 09:54 | OP.CCLET_ITS ---
06/13/2024 Neida Huang [facility] [address] [place] [address] Re : Colonoscopy procedure for Zion Lubin Dear Dr. Huang This procedure was performed on Thursday, June 13, 2024. My impressions and recommendations are as follows: Impressions : - Hemorrhoids found on perianal exam. - Non-bleeding internal hemorrhoids. - The entire examined colon is normal. - No specimens collected. Recommendations : - Discharge patient to home. - Resume previous diet. - Continue present medications. - Repeat colonoscopy in 10 years for screening purposes. My findings are described in the full procedure note, which is enclosed. If I can be of further assistance, please feel free to contact me at Doctor phone number(s): , Work: . Sincerely, MD Kati Arndt MD 06/13/2024 9:54:17 AM This report has been signed electronically.
--- NOTE | 2024-06-13 09:54 | OP.COLON_ITS ---
Patient Name: Zion Lubin Procedure Date: 06/13/2024 9:17 AM Date of : 1970 Age: 54 Procedure: Colonoscopy Indications: Screening for colorectal malignant neoplasm Providers: Kati Littlejohn MD Referring MD: Neida Huang Medicines: Monitored Anesthesia Care Patient Profile: This is a 54 year old male. Last Colonoscopy: none. The patient's first colonoscopy is today. Complications: No immediate complications. Procedure: Pre-Anesthesia Assessment: - Prior to the procedure, a History and Physical was performed, and patient medications and allergies were reviewed. The patient's tolerance of previous anesthesia was also reviewed. The risks and benefits of the procedure and the sedation options and risks were discussed with the patient. All questions were answered, and informed consent was obtained. Prior Anticoagulants: The patient has taken no anticoagulant or antiplatelet agents except for aspirin. ASA Grade Assessment: Per anesthesia. After reviewing the risks and benefits, the patient was deemed in satisfactory condition to undergo the procedure. After I obtained informed consent, the scope was passed under direct vision. Throughout the procedure, the patient's blood pressure, pulse, and oxygen saturations were monitored continuously. The Colonoscope was introduced through the anus and advanced to the cecum, identified by the appendiceal orifice, ileocecal valve and palpation. The colonoscopy was performed without difficulty. The patient tolerated the procedure well. The quality of the bowel preparation was good. Scope In: 9:27:00 AM Scope Withdrawal Time 0 hours 15 minutes 58 seconds Scope Out: 9:49:05 AM Total Procedure Duration Time 0 hours 22 minutes 5 seconds Findings: Hemorrhoids were found on perianal exam. Non-bleeding internal hemorrhoids were found. The hemorrhoids were Grade I (internal hemorrhoids that do not prolapse). The entire examined colon appeared normal. Impression: - Hemorrhoids found on perianal exam. - Non-bleeding internal hemorrhoids. - The entire examined colon is normal. - No specimens collected. Recommendation: - Discharge patient to home. - Resume previous diet. - Continue present medications. - Repeat colonoscopy in 10 years for screening purposes. Procedure Code(s): --- Professional --- G0121, PT, Colorectal cancer screening; colonoscopy on individual not meeting criteria for high risk Diagnosis Code(s): --- Professional --- Z12.11, Encounter for screening for malignant neoplasm of colon K64.0, First degree hemorrhoids CPT copyright 2021 [employer]. All rights reserved. The codes documented in this report are preliminary and upon certified medical records coder review may be revised to meet current compliance requirements. MD Kati Arndt MD 06/13/2024 9:54:17 AM This report has been signed electronically. Number of Addenda: 0 Note Initiated On: 06/13/2024 9:17 AM
--- NOTE | 2024-06-13 09:56 | PCM.POST.ANE ---
Anesthesia: Postop Eval I Current Vital Signs Temperature: 99.1 F Pulse Rate: 84 Blood Pressure: 91/73 Respiratory Rate: 16 Pulse Ox: 96 Oxygen Delivery Method: Room Air Assessment Airway patent: Yes Spontaneous unlabored respirations: Yes Mental status: Awake and Calm nausea: No Vomiting: No Anesthesia Complication: No Fluid Hydration Crystalloid volume administer (ml): 60 Total IV fluid infused: 60 Progress Note Anesthesia document: Postop Eval 1 completed: Yes
--- NOTE | 2024-06-13 10:43 | PCM.POSTANE2 ---
Anesthesia Postop Eval I Sum Postop Eval Completion status Anesthesia document: Postop Eval 1 completed: Yes Anesthesia Postop Eval I Summary Anesthesia Postop Eval I Summary: Anesthesia Postop Eval I: Assessment Summary Airway patent Yes 06/13/24 09:57 [email or web address] Spontaneous unlabored Yes 06/13/24 09:57 [email or web address] respirations Mental status Awake,Calm 06/13/24 09:57 [email or web address] nausea No 06/13/24 09:57 [email or web address] Vomiting No 06/13/24 09:57 [email or web address] Anesthesia Postop Eval I: Fluid Summary Crystalloid volume administer 60 06/13/24 09:57 [email or web address] (ml) Colloids volume administered ( ml) Blood Product volume administered (ml) Total IV fluid infused 60 06/13/24 09:57 [email or web address] Anesthesia Postop Eval I: Summary Notes Anesthesia Complication No 06/13/24 09:57 [email or web address] Anesthesia Complication Comment: Post-operative progress note Anesthesia: Postop Eval II Evaluation Mental status: Awake Pain Level: 0 nausea: No Vomiting: No
== END 2024-06-13 10:36 | disposition home or self-care (01) ==
LOC: EN 07:44 → AC 07:45
PROVIDERS: PCP Internal Medicine; Referring Provider Internal Medicine; Visit Provider Surgery
PROC: 0DJD8ZZ Inspection of Lower Intestinal Tract, Via Natural or Artificial Opening Endoscopic (ICD-10-PCS; CPT 45378; principal; 2024-06-13 09:10)
DX: Z12.11 Encounter for screening for malignant neoplasm of colon (principal); E11.9 Type 2 diabetes mellitus without complications; Z79.4 Long term (current) use of insulin; E78.5 Hyperlipidemia, unspecified; K64.0 First degree hemorrhoids; I10 Essential (primary) hypertension; F17.220 Nicotine dependence, chewing tobacco, uncomplicated; K64.4 Residual hemorrhoidal skin tags; K21.9 Gastro-esophageal reflux disease without esophagitis; Z79.899 Other long term (current) drug therapy
CPT/HCPCS: 45378; 82962; A4216; J2405

== ENCOUNTER → 2024-09-23 | Outpatient (CLI) | payer BC, SELFPAY ==
[2024-09-23 08:36] LABS: ALB/GLOB Ratio 1.4 RATIO (0.9-2.4); AST(SGOT) 38 U/L (<=37); Alanine Aminotransfer ALT/SGPT 56 U/L (<=46); Albumin, Serum 4.2 g/dL (3.5-5.0); Alkaline Phosphatase 67 U/L (40-129); Anion Gap 10 (5-15); BUN 13 mg/dL (4-19); BUN/Creat Ratio 12.1 RATIO (10-20); Calcium,Total 9.5 mg/dL (7.6-11.0); Carbon Dioxide 29.6 mmol/L (21.0-32.0); Chloride 99 mmol/L (98-108); Cholesterol 169 mg/dL (<=200); Creatinine, Serum 1.07 mg/dL (0.70-1.20); EST Glomerular Filtration Rate 83 (>60); Globulin 2.9 g/dL (2.2-4.2); Glucose 170 mg/dL (70-99); High Density Lipoprotein 37 mg/dL; Low Density Lipoprotein Calc. 106 mg/dL; Potassium 4.5 mmol/L (3.3-5.1); Protein, Total 7.1 g/dL (5.9-8.4); Sodium Level 138 mmol/L (133-145); Total Bilirubin 0.41 mg/dL (0.00-1.30); Triglycerides 131 mg/dL; Very Low Density Lipoprotein 26 mg/dL (5-40)
[2024-09-23 08:59] LABS: Vitamin D,25 Hydroxy 37.8 ng/mL (30-100)
[2024-09-23 10:50] LABS: Microalbumin,Random Urine 16.6 mg/L (NO RANGE EST.); Microalbumin:Creatinine Ratio 75.5 mg/g CRE
== END | disposition home or self-care (01) ==
LOC: LAB 07:20
PROVIDERS: PCP Internal Medicine; Referring Provider Nurse Practitioner Family; Visit Provider Nurse Practitioner Family
DX: E11.65 Type 2 diabetes mellitus with hyperglycemia (principal); Z79.4 Long term (current) use of insulin
CPT/HCPCS: 36415; 80053; 80061; 82043; 82306; 82570; 84443